=== PATIENT | female | born 1975 | race Caucasian/White ===

== ENCOUNTER → 2016-09-07 | Outpatient (CLI) | payer OTHER ==
[~2016-09-07] MED LIST: ALPR1T; ALPR1T PO; AMIT25TA9 PO; BUDE10.2 IH; BUDE6HFA IH; BUSP10TA95 PO; CEFD300C3 PO; CEFU500T5 PO; CHLO500T2 PO; CLAR-19 PO; CLN.2T; CLON1TAB PO; CPR500T PO; CRS350T; CYCL10TA45; CYCL10TA9; CYCL10TA9 PO; DIPH25TA82 PO; DIVA500T PO; DLT30T; ENLP10T; EST.625T; FLUO10CA19; FLUT16SP22 NS; GLIP5TAB13 PO; HYDR-2856 PO; HYDR-32; HYDR-3720; HYDR-3720 PO; HYDR-3820 PO; HYDR-87 PO; HYDR25TA4 PO; METO100T2 PO; METO50TA2 PO; METO50TA7; MTP50T PO; NAPR500T PO; OMEP40CA36 PO; PANT40TA3 PO; PRD20T PO; PREG100C22 PO; PREG75CA PO; QUET100T69 PO; QUET25TA PO; RANI150T15 PO; RT-ALBUINH IH; TRAM50TA2 PO; TRAZ100T92 PO; TRAZ150T42 PO; VORT10TA PO; VORT20TA PO; ZLP10T
--- NOTE | 2016-09-07 13:25 | Diagnostic Imaging Report ---
PROCEDURE: CT abdomen and pelvis without contrast. TECHNIQUE: Multiple contiguous axial images were obtained through the abdomen and pelvis without the use of intravenous contrast. INDICATION: Nausea, vomiting, diarrhea. COMPARISON: Study compared to 02/03/2016. FINDINGS: The previous left perinephric and periureteric edema and mild collecting system distention has resolved. No opaque stone, disease, or hydronephrosis. There is some postoperative distortion of the pericecal fat in the right lower quadrant, presumed previous appendectomy. The uterus is surgically absent. Unopacified urinary bladder is unremarkable. There were no findings of diverticulitis. There is no bowel, biliary, or urinary tract obstruction. Liver suggests mild steatosis, but no biliary dilatation. The gallbladder is unremarkable. The pancreas is normal. There is no adrenal mass. The spleen is negative. There is no pneumatosis or free air. There are no focal inflammatory changes. IMPRESSION: Postoperative sequelae and mild hepatic steatosis. Resolution of previous left hydronephrosis. No acute abnormality or adverse development. Dictated by: Dictated on workstation # [id number]
== END ==
LOC: RAD 10:18
PROVIDERS: ATTEND Nurse Practitioner Family
DX: K58.0 Irritable bowel syndrome with diarrhea (principal); K76.0 Fatty (change of) liver, not elsewhere classified
CPT/HCPCS: 74176

== ENCOUNTER 2016-09-30 11:23 | Emergency (ER) | payer SELFPAY ==
[~2016-09-30] VITALS: Ht 157.5 cm; Wt 77.1 kg
--- OUTSIDE RECORDS SUMMARY | 2016-09-30 11:45 | XMS REPORT ---
Author ALEXIA Lehman Organization [employer] Address Unknown Phone Unavailable Care Team Providers Care Integrated Circuit Design Engineer Name Role Phone ALEXIA SMITH CP Unavailable Allergies No Known Allergies Problems Problem Type Condition Code Onset Dates Condition Status Problem Hypertension, benign I10 Active Medications No Known Medications Results No Known Results Summary Purpose eClinicalWorks Submission
--- OUTSIDE RECORDS SUMMARY | 2016-09-30 11:45 | XMS REPORT ---
Author Author ROSSY LAUGHLIN Organization [employer] Address Unknown Phone Unavailable Care Team Providers Care Certified Meeting Professional Name Role Phone ROSSY LAUGHLIN CP Unavailable Allergies No Known Allergies Problems Problem Type Condition Code Onset Dates Condition Status Problem Hypertension, benign I10 Active Problem Other chronic pain G89.29 Active Medications Medication Code System Code Instructions Start Date End Date Status Dosage Hydrochlorothiazide [facility] [address]-42 25 MG Orally Once a day July 10, 2015 1 tablet Taiban [facility] [address]-91 10-325 MG Orally 3 times a day Nov 17, 2015 1 tablet as needed GlipiZIDE [facility] [address]-74 5 mg Orally Once a day July 10, 2015 1 tablet Brintellix [facility] 0 20 mg Orally Once a day 1 tablet Seroquel [facility] [address]-34 100 MG Orally daily and 2 tabs at HS May 27, 2014 1 tablet Parafon Forte DSC [facility] [address]-39 500 MG Orally 2 times a day Dec 04, 2014 1 tablet Metoprolol Tartrate [facility] [address]-83 50 mg Orally Twice a day August 08, 2015 1 tablet Protonix [facility] [address]-45 40 mg Orally Once a day, voucher 1st fill only August 08, 2015 1 tablet Results No Known Results Summary Purpose eClinicalWorks Submission
--- OUTSIDE RECORDS SUMMARY | 2016-09-30 11:45 | XMS REPORT ---
Author ALEXIA Lehman [facility] eClinicalWorks Address Unknown Phone Unavailable Care Team Providers Care Supervisor Keymodule Assembly Name Role Phone ALEXIA SMITH CP Unavailable Allergies, Adverse Reactions, Alerts Substance Reaction Event Type Sulfamethoxazole Info Not Available Drug Allergy Depakote chest pain, nausea, slobbering Drug Allergy Problems Problem Type Condition Code Onset Dates Condition Status Assessment Low back pain M54.5 Active Assessment Sciatica, unspecified side M54.30 Active Problem Hypertension, benign I10 Active Assessment Pain in left knee M25.562 Active Assessment Hypertension, benign I10 Active Assessment Mood disorder F39 Active Assessment Pain in right knee M25.561 Active Medications Medication Code System Code Instructions Start Date End Date Status Dosage Amitriptyline HCl [facility] [address]-31 25 MG Orally Once a day Dec 04, 2014 1 tablet Metoprolol Tartrate [facility] [address]-28 100 MG every 12 hrs Apr 22, 2014 1 tablet Brintellix [facility] [address]-90 10 MG Orally Once a day September 18, 2014 2 tablets Seroquel [facility] [address]-34 100 MG Orally Twice a day May 27, 2014 1 tablet Brintellix [facility] [address]-53 5 MG Orally Once a day Feb 03, 2015 4 tablets Lyrica [facility] [address]-99 75 MG Orally Twice a day September 18, 2014 1 capsule Trazodone HCl [facility] [address]-55 150 MG Orally Once a day Feb 03, 2015 2 tablets BusPIRone HCl [facility] [address]-31 10 MG Orally Twice a day Feb 03, 2015 1 tablet Tramadol HCl [facility] [address]-16 50 MG Orally every 4 hrs Dec 04, 2014 1 tablet as needed Parafon Forte DSC [facility] [address]-49 500 MG Orally 2 times a day voucher 1st fill only Dec 04, 2014 1 tablet Procedures Procedure Coding System Code Date Office Visit, Est Pt., Level 3 CPT-4 95970 Feb 03, 2015 Vital Signs Date/Time: Feb 03, 2015 Temperature 96.9 F Weight 189.5 lbs Height 63 in BMI 33.56 Index Blood Pressure Diastolic 72 mmHg Blood Pressure Systolic 112 mmHg Cardiac Monitoring Heart Rate 68 bpm Results No Known Results Summary Purpose eClinicalWorks Submission
--- OUTSIDE RECORDS SUMMARY | 2016-09-30 11:45 | XMS REPORT ---
Author ALEXIA Lehman [facility] e[employer] Address Unknown Phone Unavailable Care Team Providers Care Customer Management Specialist Name Role Phone ALEXIA SMITH CP Unavailable Allergies, Adverse Reactions, Alerts Substance Reaction Event Type Sulfamethoxazole Info Not Available Drug Allergy Depakote chest pain, nausea, slobbering Drug Allergy Problems Problem Type Condition Code Onset Dates Condition Status Assessment Low back pain M54.5 Active Problem Essential hypertension, benign 401.1 Active Problem Pain in joint, pelvic region and thigh 719.45 Active Problem Unspecified vitamin D deficiency 268.9 Active Problem Obesity, unspecified 278.00 Active Problem Other abnormal glucose 790.29 Active Problem Routine gynecological examination V72.31 Active Problem Anxiety state, unspecified 300.00 Active Problem Chest pain, unspecified 786.50 Active Problem Unspecified backache 724.5 Active Problem Lumbago 724.2 Active Problem Pain in joint, lower leg 719.46 Active Problem Family history of malignant neoplasm of breast V16.3 Active Problem Diffuse cystic mastopathy 610.1 Active Problem Rash and other nonspecific skin eruption 782.1 Active Problem Nondependent tobacco use disorder 305.1 Active Problem Unspecified episodic mood disorder 296.90 Active Problem Acute upper respiratory infections of unspecified site 465.9 Active Problem Unspecified constipation 564.00 Active Problem Unspecified hemorrhoids without mention of complication 455.6 Active Problem Mastodynia 611.71 Active Problem Allergic rhinitis, cause unspecified 477.9 Active Problem Unspecified breast screening V76.10 Active Problem Screening examination for venereal disease V74.5 Active Problem Edema 782.3 Active Problem Dysfunction of Eustachian tube 381.81 Active Problem Unspecified gastritis and gastroduodenitis without mention of hemorrhage 535.50 Active Problem Cellulitis and abscess of unspecified site 682.9 Active Medications Medication Code System Code Instructions Start Date End Date Status Dosage Lyrica [facility] [address]-92 75 MG Orally Twice a day September 18, 2014 1 capsule Seroquel [facility] [address]-93 100 MG Orally Twice a day May 27, 2014 1 tablet Metoprolol Tartrate [facility] [address]-04 100 MG Apr 22, 2014 take 1 tablet (100 mg) by oral route 2 times per day with meals Amitriptyline HCl [facility] [address]-98 25 MG Orally Once a day Dec 04, 2014 1 tablet Tramadol HCl [facility] [address]-02 50 MG Orally every 4 hrs Dec 04, 2014 1 tablet as needed Brintellix [facility] [address]-70 10 MG Orally Once a day September 18, 2014 2 tablets trazodone NDC 0 300 mg May 27, 2014 1 Daily by Oral route 1 time per day Take at HS for sleep tramadol NDC 0 50 mg 4 times a day June 20, 2014 1 tablet buspirone NDC 0 10 mg 3 times a day June 03, 2014 2 tablets Parafon Forte DSC [facility] [address]-25 500 MG Orally 2 times a day voucher 1st fill only Dec 04, 2014 1 tablet Procedures Procedure Coding System Code Date Office Visit, Est Pt., Level 3 CPT-4 15490 Jan 03, 2015 Vital Signs Date/Time: Jan 03, 2015 Temperature 97.8 F Weight 191.7 lbs Height 63 in BMI 33.95 Index Blood Pressure Diastolic 60 mmHg Blood Pressure Systolic 120 mmHg Cardiac Monitoring Heart Rate 68 bpm Results No Known Results Summary Purpose eClinicalWorks Submission
--- OUTSIDE RECORDS SUMMARY | 2016-09-30 11:46 | XMS REPORT ---
Author ALEXIA Lehman Organization [employer] Address Unknown Phone Unavailable Care Team Providers Care Veneer Production Machine Operator Name Role Phone ALEXIA SMITH CP Unavailable Allergies No Known Allergies Problems Problem Type Condition Code Onset Dates Condition Status Problem Hypertension, benign I10 Active Medications No Known Medications Results No Known Results Summary Purpose eClinicalWorks Submission
--- OUTSIDE RECORDS SUMMARY | 2016-09-30 11:46 | XMS REPORT ---
Author Author ALEXIA SMITH [facility] Address [address] [place] [address] Care Team Providers Care Flute Polisher Name Role Phone ALEXIA SMITH Unavailable PROBLEMS Type Condition ICD9-CM Code [id number] Code Onset Dates Condition Status SNOMED Code Problem Lumbago with sciatica, left side M54.42 Active 793961069 Problem Other chronic pain G89.29 Active 93325588 Problem Hypertension, benign I10 Active 58145141 ALLERGIES Unknown Allergies SOCIAL HISTORY No smoking Hx information available PLAN OF CARE VITAL SIGNS Height 63 in 2016-03-03 Weight 192.2 lbs 2016-03-03 Heart Rate 80 bpm 2016-03-03 Respiratory Rate 20 2016-03-03 BMI 34.04 kg/m2 2016-03-03 Blood pressure systolic 128 mmHg 2016-03-03 Blood pressure diastolic 78 mmHg 2016-03-03 MEDICATIONS Unknown Medications RESULTS No Results PROCEDURES No Known procedures IMMUNIZATIONS No Known Immunizations
--- OUTSIDE RECORDS SUMMARY | 2016-09-30 11:46 | XMS REPORT ---
Author Author ALEXIA SMITH [facility] Address [address] [place] [address] Care Team Providers Care Weights And Measures Inspector Name Role Phone ALEXIA SMITH Unavailable PROBLEMS Type Condition ICD9-CM Code [id number] Code Onset Dates Condition Status SNOMED Code Problem Hypertension, benign I10 Active 10762139 Assessment Anxiety F41.9 Dec, Active 96521311 ALLERGIES Substance Reaction Event Type Date Status Fetzima made pt very angry/depressed Drug Allergy Dec, Active Sulfamethoxazole Unknown Drug Allergy Dec, Active Depakote chest pain, nausea, slobbering Drug Allergy Dec, Active SOCIAL HISTORY No smoking Hx information available PLAN OF CARE VITAL SIGNS Height 63 in 2015-12-22 Weight 196.2 lbs 2015-12-22 Heart Rate 76 bpm 2015-12-22 Respiratory Rate 18 2015-12-22 BMI 34.75 kg/m2 2015-12-22 Blood pressure systolic 122 mmHg 2015-12-22 Blood pressure diastolic 72 mmHg 2015-12-22 MEDICATIONS Medication Instructions Dosage Frequency Start Date End Date Duration Status Brintellix 20 mg Orally Once a day 1 tablet 24h 30 days Active Zantac 150 MG Orally Once a day 1 tablet at bedtime 24h Oct, Active Hydrochlorothiazide 25 MG Orally Once a day 1 tablet 24h Jul, 90 days Active Whitefish 10-325 MG Orally 3 times a day 1 tablet as needed 8h Nov, Active Parafon Forte DSC 500 MG Orally 2 times a day 1 tablet 12h Dec, Active Metoprolol Tartrate 50 mg Orally Twice a day 1 tablet 12h August, Active BusPIRone HCl 10 mg Orally Twice a day 1 tablet 12h Dec, Active Seroquel 100 MG Orally 3 times a day, voucher 1st fill only 1 tablet May, Active GlipiZIDE 5 mg Orally Once a day 1 tablet 24h Jul, 90 days Active Cetirizine HCl 10 mg Orally Once a day, voucher 1st fill only 1 tablet Oct, Active Protonix 40 mg Orally Once a day, voucher 1st fill only 1 tablet August, Active RESULTS No Results PROCEDURES Procedure Date Ordered Related Diagnosis Body Site Office Visit, Est Pt., Level 3 Dec 22, 2015 IMMUNIZATIONS No Known Immunizations
--- OUTSIDE RECORDS SUMMARY | 2016-09-30 11:46 | XMS REPORT ---
Author ALEXIA Lehman [facility] eClinicalWorks Address Unknown Phone Unavailable Care Team Providers Care Dowel Machine Operator Name Role Phone ALEXIA SMITH CP Unavailable Allergies, Adverse Reactions, Alerts Substance Reaction Event Type Fetzima made pt very angry/depressed Drug Allergy Sulfamethoxazole Info Not Available Drug Allergy Depakote chest pain, nausea, slobbering Drug Allergy Problems Problem Type Condition Code Onset Dates Condition Status Assessment Hip pain M25.559 Active Assessment Low back pain M54.5 Active Problem Hypertension, benign I10 Active Assessment Pain of left leg M79.605 Active Assessment Elevated glucose R73.09 Active Assessment Sciatica, unspecified side M54.30 Active Assessment Pain in right leg M79.604 Active Medications Medication Code System Code Instructions Start Date End Date Status Dosage Kiskimere Carbonate [facility] [address]-69 300 MG Orally 2 times a day 1 capsule Prilosec [facility] [address]-01 40 MG Orally Once a day 1 capsule Seroquel [facility] [address]-97 100 MG Orally Twice a day May 27, 2014 1 tablet Parafon Forte DSC [facility] [address]-40 500 MG Orally 2 times a day Dec 04, 2014 1 tablet Metoprolol Tartrate [facility] [address]-16 100 MG every 12 hrs Apr 22, 2014 1 tablet Tramadol HCl [facility] [address]-17 50 MG Orally every 4 hrs Dec 04, 2014 1 tablet as needed Procedures Procedure Coding System Code Date GLYCATED HEMOGLOBIN TEST CPT-4 82645 May 09, 2015 Office Visit, Est Pt., Level 3 CPT-4 91222 May 09, 2015 X-RAY EXAM OF LOWER SPINE CPT-4 29637 May 09, 2015 Vital Signs Date/Time: May 09, 2015 Cardiac Monitoring Heart Rate 72 bpm Temperature 98.4 F Height 63 in Blood Pressure Diastolic 94 mmHg Blood Pressure Systolic 132 mmHg Results Name Result Date Reference Range Unit Abnormality Flag A1C (IN HOUSE) ----A1C IN HOUSE 5.7 [id number] 4.3 - 5.6 % ----Lot [id number] ----Exp date [id number] Summary Purpose eClinicalWorks Submission
--- OUTSIDE RECORDS SUMMARY | 2016-09-30 11:46 | XMS REPORT ---
Author Author ALEXIA SMITH Organization [employer] Address Unknown Phone Unavailable Care Team Providers Care Pot Sander Name Role Phone ALEXIA SMITH CP Unavailable Allergies No Known Allergies Problems Problem Type Condition Code Onset Dates Condition Status Assessment Mood disorder F39 Active Problem Hypertension, benign I10 Active Medications Medication Code System Code Instructions Start Date End Date Status Dosage Brintellix [facility] [address]-91 20 MG Orally Once a day September 18, 2014 1 tablet Results No Known Results Summary Purpose eClinicalWorks Submission
--- OUTSIDE RECORDS SUMMARY | 2016-09-30 11:46 | XMS REPORT ---
Author Author ALEXIA SMITH Organization [employer] Address Unknown Phone Unavailable Care Team Providers Care Dryerman/Woman Name Role Phone ALEXIA SMITH CP Unavailable Allergies No Known Allergies Problems Problem Type Condition Code Onset Dates Condition Status Problem Hypertension, benign I10 Active Problem Other chronic pain G89.29 Active Medications No Known Medications Results No Known Results Summary Purpose eClinicalWorks Submission
--- OUTSIDE RECORDS SUMMARY | 2016-09-30 11:47 | XMS REPORT ---
Author Author ALEXIA SMITH [facility] Address [address] [place] [address] Care Team Providers Care Electrician Second Name Role Phone ALEXIA SMITH Unavailable PROBLEMS Type Condition ICD9-CM Code [id number] Code Onset Dates Condition Status SNOMED Code Problem Lumbago with sciatica, left side M54.42 Active 077696448 Problem Other chronic pain G89.29 Active 96928357 Assessment Pain in left knee M25.562 Mar, Active 00423975 Problem Hypertension, benign I10 Active 57874338 Assessment Lumbago with sciatica, left side M54.42 Mar, Active 379094842 ALLERGIES Substance Reaction Event Type Date Status Fetzima made pt very angry/depressed Drug Allergy Mar, Active Sulfamethoxazole Unknown Drug Allergy Mar, Active Depakote chest pain, nausea, slobbering Drug Allergy Mar, Active SOCIAL HISTORY No smoking Hx information available PLAN OF CARE VITAL SIGNS Height 63 in 2016-03-15 Weight 198.1 lbs 2016-03-15 Heart Rate 68 bpm 2016-03-15 Respiratory Rate 18 2016-03-15 BMI 35.09 kg/m2 2016-03-15 Blood pressure systolic 128 mmHg 2016-03-15 Blood pressure diastolic 78 mmHg 2016-03-15 MEDICATIONS Medication Instructions Dosage Frequency Start Date End Date Duration Status Zantac 150 MG Orally Once a day 1 tablet at bedtime 24h Oct, Active Brintellix 20 mg Orally Once a day 1 tablet 24h 30 days Active Protonix 40 mg Orally Once a day, voucher 1st fill only 1 tablet August, Active Cyclobenzaprine HCl 10 mg Orally 2 times a day 1 tablet 12h Mar, Jul, 30 day(s) Active Metoprolol Tartrate 50 mg Orally Twice a day 1 tablet 12h August, Active Cetirizine HCl 10 mg Orally Once a day, voucher 1st fill only 1 tablet Oct, Active BusPIRone HCl 10 mg Orally Twice a day 1 tablet 12h Dec, Active Seroquel 100 MG Orally daily and 2 tabs at HS 1 tablet May, Active [place] 10-325 MG Orally 4 times a day 1 tablet as needed 6h Mar, Active RESULTS No Results PROCEDURES Procedure Date Ordered Related Diagnosis Body Site Office Visit, Est Pt., Level 3 Mar 15, 2016 IMMUNIZATIONS No Known Immunizations
--- OUTSIDE RECORDS SUMMARY | 2016-09-30 11:47 | XMS REPORT ---
Author ALEXIA Lehman [facility] eClinicalWorks Address Unknown Phone Unavailable Care Team Providers Care Pacs Administrator Name Role Phone ALEXIA SMITH CP Unavailable Allergies, Adverse Reactions, Alerts Substance Reaction Event Type Fetzima made pt very angry/depressed Drug Allergy Sulfamethoxazole Info Not Available Drug Allergy Depakote chest pain, nausea, slobbering Drug Allergy Problems Problem Type Condition Code Onset Dates Condition Status Assessment Chronic gastritis without bleeding, unspecified gastritis type K29.50 Active Assessment Allergic rhinitis, unspecified allergic rhinitis type J30.9 Active Problem Hypertension, benign I10 Active Assessment Acute left-sided low back pain without sciatica M54.5 Active Medications Medication Code System Code Instructions Start Date End Date Status Dosage Cetirizine HCl [facility] [address]-65 10 mg Orally Once a day. PLEASE VOUCHER October 17, 2015 Mar 15, 2016 1 tablet Zantac [facility] [address]-73 150 MG Orally Once a day October 17, 2015 1 tablet at bedtime Hydrochlorothiazide [facility] [address]-97 25 MG Orally Once a day July 10, 2015 1 tablet GlipiZIDE [facility] [address]-54 5 mg Orally Once a day July 10, 2015 1 tablet Seroquel [facility] [address]-52 100 MG Orally Twice a day May 27, 2014 1 tablet Brintellix [facility] [address]-34 20 MG Orally Once a day 1 tablet Protonix [facility] [address]-96 40 mg Orally Once a day August 08, 2015 1 tablet Metoprolol Tartrate [facility] [address]-64 50 mg Orally Twice a day August 08, 2015 1 tablet Triamcinolone Acetonide [facility] [address]-64 0.1 % Externally Twice a day, voucher 1st fill August 08, 2015 1 application to affected area Tramadol HCl [facility] [address]-37 50 mg Orally every 4 hrs Dec 04, 2014 1 tablet as needed Parafon Forte DSC [facility] [address]-74 500 MG Orally 2 times a day Dec 04, 2014 1 tablet Procedures Procedure Coding System Code Date ASSAY OF AMYLASE CPT-4 62228 October 17, 2015 ASSAY THYROID STIM HORMONE CPT-4 81893 October 17, 2015 Office Visit, Est Pt., Level 3 CPT-4 62803 October 17, 2015 IMMUNOASSAY,INFECTIOUS AGENT CPT-4 83963 October 17, 2015 VENIPUNCT, ROUTINE* CPT-4 64732 October 17, 2015 COMPLETE CBC W/AUTO DIFF WBC CPT-4 95547 October 17, 2015 ASSAY OF LIPASE CPT-4 96332 October 17, 2015 COMPREHEN METABOLIC PANEL CPT-4 00615 October 17, 2015 LIPID PANEL CPT-4 56070 October 17, 2015 Vital Signs Date/Time: October 17, 2015 Cardiac Monitoring Heart Rate 80 bpm Weight 191.5 lbs Height 63 in Blood Pressure Diastolic 90 mmHg Blood Pressure Systolic 129 mmHg Results No Known Results Summary Purpose eClinicalWorks Submission
--- OUTSIDE RECORDS SUMMARY | 2016-09-30 11:47 | XMS REPORT ---
Author ALEXIA Lehman [facility] eClinicalWorks Address Unknown Phone Unavailable Care Team Providers Care Staff Trainer Name Role Phone ALEXIA SMITH CP Unavailable Allergies, Adverse Reactions, Alerts Substance Reaction Event Type Fetzima made pt very angry/depressed Drug Allergy Sulfamethoxazole Info Not Available Drug Allergy Depakote chest pain, nausea, slobbering Drug Allergy Problems Problem Type Condition Code Onset Dates Condition Status Assessment Lumbar neuritis M54.16 Active Assessment Other chronic pain G89.29 Active Problem Hypertension, benign I10 Active Assessment Pain in right knee M25.561 Active Medications Medication Code System Code Instructions Start Date End Date Status Dosage GlipiZIDE [facility] [address]-03 5 mg Orally Once a day July 10, 2015 1 tablet Metoprolol Tartrate [facility] [address]-69 50 mg Orally Twice a day August 08, 2015 1 tablet Brintellix NDC 0 20 mg Orally Once a day 1 tablet [place] [facility] [address]-29 10-325 MG Orally 3 times a day Nov 17, 2015 1 tablet as needed Parafon Forte DSC [facility] [address]-48 500 MG Orally 2 times a day Dec 04, 2014 1 tablet Hydrochlorothiazide [facility] [address]-02 25 MG Orally Once a day July 10, 2015 1 tablet Seroquel [facility] [address]-25 100 MG Orally take 2 tabs at bedtime May 27, 2014 1 tablet in AM Protonix [facility] [address]-45 40 mg Orally Once a day August 08, 2015 1 tablet Cetirizine HCl [facility] [address]-57 10 mg Orally Once a day. PLEASE VOUCHER October 17, 2015 1 tablet Zantac [facility] [address]-92 150 MG Orally Once a day October 17, 2015 1 tablet at bedtime Procedures Procedure Coding System Code Date Office Visit, Est Pt., Level 3 CPT-4 60742 Nov 17, 2015 Vital Signs Date/Time: Nov 17, 2015 Cardiac Monitoring Heart Rate 72 bpm Weight 193.7 lbs Height 63 in BMI 34.31 Index Blood Pressure Diastolic 76 mmHg Blood Pressure Systolic 118 mmHg Results No Known Results Summary Purpose eClinicalWorks Submission
--- OUTSIDE RECORDS SUMMARY | 2016-09-30 11:47 | XMS REPORT ---
Author Author ALEXIA SMITH Organization e[employer] Address Unknown Phone Unavailable Care Team Providers Care Paunch Trimmer Name Role Phone ALEXIA SMITH CP Unavailable Allergies No Known Allergies Problems Problem Type Condition Code Onset Dates Condition Status Assessment Lumbago M54.5 Active Problem Hypertension, benign I10 Active Medications Medication Code System Code Instructions Start Date End Date Status Dosage Seroquel [facility] [address]-33 100 MG Orally take 2 tabs at bedtime May 27, 2014 1 tablet in AM Results No Known Results Summary Purpose eClinicalWorks Submission
--- OUTSIDE RECORDS SUMMARY | 2016-09-30 11:47 | XMS REPORT ---
Author Author ALEXIA SMITH Organization [employer] Address Unknown Phone Unavailable Care Team Providers Care Deputy Chief Magistrate Name Role Phone ALEXIA SMITH CP Unavailable Allergies No Known Allergies Problems Problem Type Condition Code Onset Dates Condition Status Problem Hypertension, benign I10 Active Problem Other chronic pain G89.29 Active Medications Medication Code System Code Instructions Start Date End Date Status Dosage [facility] [address]-50 10-325 MG Orally 3 times a day Nov 17, 2015 1 tablet as needed Results No Known Results Summary Purpose eClinicalWorks Submission
--- OUTSIDE RECORDS SUMMARY | 2016-09-30 11:47 | XMS REPORT ---
Author ALEXIA Lehman Organization [employer] Address Unknown Phone Unavailable Care Team Providers Care Home Care Chaplain Name Role Phone ALEXIA SMITH CP Unavailable Allergies No Known Allergies Problems Problem Type Condition Code Onset Dates Condition Status Problem Hypertension, benign I10 Active Medications No Known Medications Results No Known Results Summary Purpose [employer]ClinicalWorks Submission
--- OUTSIDE RECORDS SUMMARY | 2016-09-30 11:47 | XMS REPORT ---
Author Author ALEXIA SMITH [facility] Address [address] [place] [address] Care Team Providers Care Top Former Name Role Phone ALEXIA SMITH Unavailable PROBLEMS Type Condition ICD9-CM Code [id number] Code Onset Dates Condition Status SNOMED Code Problem Hypertension, benign I10 Active 64683277 ALLERGIES Unknown Allergies SOCIAL HISTORY No smoking Hx information available PLAN OF CARE VITAL SIGNS MEDICATIONS Medication Instructions Dosage Frequency Start Date End Date Duration Status [place] 10-325 MG Orally 3 times a day 1 tablet as needed 8h 15 Nov, 2015 Active RESULTS No Results PROCEDURES No Known procedures IMMUNIZATIONS No Known Immunizations
--- OUTSIDE RECORDS SUMMARY | 2016-09-30 11:47 | XMS REPORT ---
Author ALEXIA Lehman Organization [employer] Address Unknown Phone Unavailable Care Team Providers Care Editor Publications Name Role Phone ALEXIA SMITH CP Unavailable Allergies No Known Allergies Problems Problem Type Condition Code Onset Dates Condition Status Assessment Hip pain M25.559 Active Problem Hypertension, benign I10 Active Medications Medication Code System Code Instructions Start Date End Date Status Dosage Metoprolol Tartrate [facility] [place] [address]-57 100 MG every 12 hrs Apr 22, 2014 1 tablet Results No Known Results Summary Purpose eClinicalWorks Submission
--- OUTSIDE RECORDS SUMMARY | 2016-09-30 11:49 | XMS REPORT ---
Author Author ALEXIA SMITH [facility] Address [address] [place] [address] Care Team Providers Care Wad Blanking Press Adjuster Name Role Phone SARAH ALEXIA Unavailable PROBLEMS Type Condition ICD9-CM Code [id number] Code Onset Dates Condition Status SNOMED Code Problem Lumbago with sciatica, left side M54.42 Active 960002847 Problem Other chronic pain G89.29 Active 42028894 Problem Hypertension, benign I10 Active 96366385 Assessment Acute left-sided low back pain without sciatica M54.5 Feb, Active 024522473 ALLERGIES Unknown Allergies SOCIAL HISTORY No smoking Hx information available PLAN OF CARE VITAL SIGNS MEDICATIONS Unknown Medications RESULTS No Results PROCEDURES Procedure Date Ordered Related Diagnosis Body Site TORADOL (IM) 60 MG/2ML (UP TO 15 MG) Mar 03, 2016 THER/PROPH/DIAG INJ, SC/IM Mar 03, 2016 IMMUNIZATIONS Vaccine Route Administration Date Status TORADOL (IM) 60 MG/2ML (UP TO 15 MG) IM Intramuscular Mar 03, 2016 Administered
--- OUTSIDE RECORDS SUMMARY | 2016-09-30 11:49 | XMS REPORT ---
Author ALEXIA Lehman [facility] e[employer] Address Unknown Phone Unavailable Care Team Providers Care Pyrotechnic Mixer Name Role Phone ALEXIA SMITH CP Unavailable Allergies, Adverse Reactions, Alerts Substance Reaction Event Type Sulfamethoxazole Info Not Available Drug Allergy Depakote chest pain, nausea, slobbering Drug Allergy Problems Problem Type Condition Code Onset Dates Condition Status Assessment Low back pain M54.5 Active Assessment Sciatica, unspecified side M54.30 Active Problem Hypertension, benign I10 Active Medications Medication Code System Code Instructions Start Date End Date Status Dosage BusPIRone HCl [facility] [address]-37 10 MG Orally Twice a day Feb 03, 2015 1 tablet Parafon Forte DSC [facility] [address]-83 500 MG Orally 2 times a day Dec 04, 2014 1 tablet Prilosec [facility] [address]-43 40 MG Orally Once a day 1 capsule Metoprolol Tartrate [facility] [address]-74 100 MG every 12 hrs Apr 22, 2014 1 tablet Tramadol HCl [facility] [address]-82 50 MG Orally every 4 hrs Dec 04, 2014 1 tablet as needed Fetzima [facility] [address]-30 20 MG Orally Once a day 1 capsule Seroquel [facility] [address]-88 100 MG Orally Twice a day May 27, 2014 1 tablet Trazodone HCl [facility] [address]-94 150 MG Orally Once a day Feb 03, 2015 2 tablets Procedures Procedure Coding System Code Date TORADOL (IM) 60 MG/2ML (UP TO 15 MG) CPT-4 J1885 Apr 09, 2015 THER/PROPH/DIAG INJ, SC/IM CPT-4 30609 Apr 09, 2015 Office Visit, Est Pt., Level 3 CPT-4 58570 Apr 09, 2015 Vital Signs Date/Time: Apr 09, 2015 Temperature 98.0 F Weight 195.4 lbs Height 63 in BMI 34.61 Index Blood Pressure Diastolic 92 mmHg Blood Pressure Systolic 134 mmHg Cardiac Monitoring Heart Rate 74 bpm Results No Known Results Summary Purpose eClinicalWorks Submission
--- OUTSIDE RECORDS SUMMARY | 2016-09-30 11:49 | XMS REPORT ---
Author ALEXIA Lehman Organization [employer] Address Unknown Phone Unavailable Care Team Providers Care Surg Nurse Name Role Phone ALEXIA SMITH CP Unavailable Allergies, Adverse Reactions, Alerts Substance Reaction Event Type Fetzima made pt very angry/depressed Drug Allergy Sulfamethoxazole Info Not Available Drug Allergy Depakote chest pain, nausea, slobbering Drug Allergy Problems Problem Type Condition Code Onset Dates Condition Status Problem Other chronic pain G89.29 Active Problem Hypertension, benign I10 Active Problem Lumbago with sciatica, left side M54.42 Active Assessment Other chronic pain G89.29 Active Assessment Elevated glucose R73.09 Active Assessment History of kidney infection Z87.440 Active Assessment Lumbago with sciatica, left side M54.42 Active Medications Medication Code System Code Instructions Start Date End Date Status Dosage Pyridium [facility] [address]-99 100 MG Orally Three times a day, voucher FebFeb 15, 2016 1 tablet after meals Seroquel [facility] [address]-76 100 MG Orally daily and 2 tabs at HS May 27, 2014 1 tablet Protonix [facility] [address]-13 40 mg Orally Once a day, voucher 1st fill only August 08, 2015 1 tablet Brintellix NDC 0 20 mg Orally Once a day 1 tablet [place] [facility] [address]-20 10-325 MG Orally 3 times a day Nov 17, 2015 1 tablet as needed Parafon Forte DSC [facility] [address]-65 500 MG Orally 2 times a day Dec 04, 2014 1 tablet Metoprolol Tartrate [facility] [address]-44 50 mg Orally Twice a day August 08, 2015 1 tablet Procedures Procedure Coding System Code Date Office Visit, Est Pt., Level 3 CPT-4 66047 Feb 12, 2016 GLYCATED HEMOGLOBIN TEST CPT-4 60172 Feb 12, 2016 Vital Signs Date/Time: Feb 12, 2016 Cardiac Monitoring Heart Rate 72 bpm Weight 196.0 lbs Height 63 in BMI 34.72 Index Blood Pressure Diastolic 74 mmHg Blood Pressure Systolic 112 mmHg Results Name Result Date Reference Range Unit Abnormality Flag A1C (IN HOUSE) ----A1C IN HOUSE 6.5 20160212 4.3 - 5.6 % ----Previous A1c 5.7 20160212 ----Lot [id number] ----Exp date 20160212 UA LONG DIP (IN HOUSE) ----MARISOL +1 20160212 ----GLU Negative 20160212 ----SG >=1.030 20160212 ----KET trace 20160212 ----pH 5.5 20160212 ----Protein Negative 20160212 ----BLO Negative 20160212 ----AMBER Negative 20160212 ----Color yellow 20160212 ----Odor no 20160212 ----Exp date 20160212 ----URO 0.2 20160212 ----NIT Negative 20160212 ----Clarity clear 20160212 ----Lot # [id number] Summary Purpose eClinicalWorks Submission
--- OUTSIDE RECORDS SUMMARY | 2016-09-30 11:49 | XMS REPORT ---
Author Author ALEXIA SMITH Organization [employer] Address Unknown Phone Unavailable Care Team Providers Care Core Rescuer Name Role Phone ALEXIA SMITH CP Unavailable Allergies No Known Allergies Problems Problem Type Condition Code Onset Dates Condition Status Problem Other chronic pain G89.29 Active Problem Hypertension, benign I10 Active Problem Lumbago with sciatica, left side M54.42 Active Assessment History of kidney infection Z87.440 Active Assessment Acute cystitis without hematuria N30.00 Active Medications No Known Medications Procedures Procedure Coding System Code Date URINALYSIS, AUTO, W/O SCOPE CPT-4 62590 Mar 02, 2016 Results Name Result Date Reference Range Unit Abnormality Flag UA LONG DIP (IN HOUSE) ----AMBER Negative 20160302 ----NIT Negative 20160302 ----SG >=1.030 20160302 ----KET negative 20160302 ----MARISOL negatvie 20160302 ----GLU negative 20160302 ----Odor none 20160302 ----pH 5.5 20160302 ----BLO Trace 20160302 ----URO 0.2 20160302 ----Protein Negative 20160302 ----Lot # [id number] 20160302 ----Exp date 20160302 ----Clarity clear 20160302 ----Color yellow 20160302 Summary Purpose eClinicalWorks Submission
--- OUTSIDE RECORDS SUMMARY | 2016-09-30 11:49 | XMS REPORT ---
Author ALEXIA Lehman Organization [employer] Address Unknown Phone Unavailable Care Team Providers Care Dial Screw Assembler Name Role Phone ALEXIA SMITH CP Unavailable Allergies No Known Allergies Problems Problem Type Condition ICD-9 Code Onset Dates Condition Status Problem Essential hypertension, benign 401.1 Active Problem [...] Start Date End Date Status Dosage Lyrica [facility] [address]-85 75 MG Orally Twice a day September 18, 2014 1 capsule Results No Known Results Summary Purpose eClinicalWorks Submission
--- OUTSIDE RECORDS SUMMARY | 2016-09-30 11:49 | XMS REPORT | Continuity of Care Document ---
Author Author [facility] Address Unknown Phone Unavailable Allergies Active Description Code Type Severity Reaction Onset Reported/Identified Relationship to Patient Clinical Status Yes No Known Drug Allergies [id number] Drug Allergy Unknown N/ A 05/09/2008 Yes potassium [id number] Drug Allergy Unknown SWELLING 06/10/2008 Yes Sulfa (Sulfonamide Antibiotics) [id number] Drug Allergy Unknown RASH 06/10/2008 Yes ENVIROMENTAL ALLERGIES ENVIROMENTAL ALLERGIES Mild N/A 08/20/2008 Yes sulfADIAZINE Drug Allergy 01/29/2009 Yes sulfADIAZINE Drug Allergy N/A N/A 01/29/2009 Medications Problems Date Dx Coded Attending Type Code Diagnosis Diagnosed By 01/29/2009 296.32 MAJOR DEPRESSION RECURRENT MODERATE 01/29/2009 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 01/29/2009 338.4 CHRONIC PAIN SYNDROME 01/29/2009 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 01/29/2009 ALEXIA SMITH APRN 296.32 MAJOR DEPRESSION RECURRENT MODERATE 01/29/2009 ALEXIA SMITH APRN 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 01/29/2009 ALEXIA SMITH APRN 338.4 CHRONIC PAIN SYNDROME 01/29/2009 ALEXIA SMITH APRN 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 01/29/2009 296.32 MAJOR DEPRESSION RECURRENT MODERATE 01/29/2009 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 01/29/2009 338.4 Chronic Pain Syndrome 01/29/2009 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 01/29/2009 ALEXIA SMITH APRN 296.32 MAJOR DEPRESSION RECURRENT MODERATE 01/29/2009 ALEXIA SMITH APRN 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 01/29/2009 ALEXIA SMITH APRN 338.4 Chronic Pain Syndrome 01/29/2009 ALEXIA SMITH APRN 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 01/29/2009 296.32 MAJOR DEPRESSION RECURRENT MODERATE 01/29/2009 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 01/29/2009 338.4 Chronic Pain Syndrome 01/29/2009 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 01/29/2009 296.32 MAJOR DEPRESSION RECURRENT MODERATE 01/29/2009 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 01/29/2009 338.4 Chronic Pain Syndrome 01/29/2009 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 01/29/2009 296.32 MAJOR DEPRESSION RECURRENT MODERATE 01/29/2009 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 01/29/2009 338.4 Chronic Pain Syndrome 01/29/2009 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 01/29/2009 ALEXIA SMITH APRN T 296.32 MAJOR DEPRESSION RECURRENT MODERATE 01/29/2009 ALEXIA SMITH APRN T 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 01/29/2009 ALEXIA SMITH APRN T 338.4 Chronic Pain Syndrome 01/29/2009 ALEXIA SMITH APRN T 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 01/29/2009 ALEXIA SMITH APRN T 296.32 MAJOR DEPRESSION RECURRENT MODERATE 01/29/2009 ALEXIA SMITH APRN T 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 01/29/2009 ALEXIA SMITH APRN T 338.4 Chronic Pain Syndrome 01/29/2009 ALEXIA SMITH APRN T 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 01/29/2009 ALEXIA SMITH APRN T 296.32 MAJOR DEPRESSION RECURRENT MODERATE 01/29/2009 ALEXIA SMITH APRN T 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 01/29/2009 ALEXIA SMITH APRN T 338.4 Chronic Pain Syndrome 01/29/2009 ALEXIA SMITH APRN T 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 01/29/2009 ALEXIA SMITH APRN T 296.32 MAJOR DEPRESSION RECURRENT MODERATE 01/29/2009 ALEXIA SMITH APRN T 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 01/29/2009 ALEXIA SMITH APRN T 338.4 Chronic Pain Syndrome 01/29/2009 ALEXIA SMITH APRN T 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 01/29/2009 ALEXIA SMITH APRN T 296.32 MAJOR DEPRESSION RECURRENT MODERATE 01/29/2009 ALEXIA SMITH APRN T 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 01/29/2009 ALEXIA SMITH APRN T 338.4 Chronic Pain Syndrome 01/29/2009 ALEXIA SMITH APRN T 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 01/29/2009 ALEXIA SMITH APRN T 296.32 MAJOR DEPRESSION RECURRENT MODERATE 01/29/2009 ALEXIA SMITH APRN 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 01/29/2009 ALEXIA SMITH APRN 338.4 Chronic Pain Syndrome 01/29/2009 ALEXIA SMITH APRN 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 01/29/2009 ALEXIA SMITH APRN 296.32 MAJOR DEPRESSION RECURRENT MODERATE 01/29/2009 ALEXIA SMITH APRN 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 01/29/2009 ALEIXA SMITH APRN 338.4 Chronic Pain Syndrome 01/29/2009 ALEXIA SMITH APRN 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 03/21/2009 296.30 MO DEPRESSIVE RECURRENT UNSPECIFIED 03/21/2009 309.81 AN PTSD 03/21/2009 316 PF PSYCHIC FACTORS MED COND 03/21/2009 ALEXIA SMITH APRN 296.30 MO DEPRESSIVE RECURRENT UNSPECIFIED 03/21/2009 ALEXIA SMITH APRN 309.81 AN PTSD 03/21/2009 ALEXIA SMITH APRN 316 PF PSYCHIC FACTORS MED COND 03/21/2009 296.30 Mo Depressive Recurrent Unspecified 03/21/2009 309.81 An Ptsd 03/21/2009 316 Pf Psychic Factors Med Cond 03/21/2009 ALEXIA SMITH APRN 296.30 Mo Depressive Recurrent Unspecified 03/21/2009 ALEXIA SMITH APRN 309.81 An Ptsd 03/21/2009 ALEXIA SMITH APRN 316 Pf Psychic Factors Med Cond 03/21/2009 296.30 Mo Depressive Recurrent Unspecified 03/21/2009 309.81 An Ptsd 03/21/2009 316 Pf Psychic Factors Med Cond 03/21/2009 296.30 Mo Depressive Recurrent Unspecified 03/21/2009 309.81 An Ptsd 03/21/2009 316 Pf Psychic Factors Med Cond 03/21/2009 296.30 Mo Depressive Recurrent Unspecified 03/21/2009 309.81 An Ptsd 03/21/2009 316 Pf Psychic Factors Med Cond 03/21/2009 ALEXIA SMITH APRN 296.30 Mo Depressive Recurrent Unspecified 03/21/2009 ALEXIA SMITH APRN 309.81 An Ptsd 03/21/2009 ALEXIA SMITH APRN 316 Pf Psychic Factors Med Cond 03/21/2009 ALEXIA SMITH APRN 296.30 Mo Depressive Recurrent Unspecified 03/21/2009 ALEXIA SMITH APRN 309.81 An Ptsd 03/21/2009 ALEXIA SMITH APRN 316 Pf Psychic Factors Med Cond 03/21/2009 ALEXIA SMITH APRN 296.30 Mo Depressive Recurrent Unspecified 03/21/2009 ALEXIA SMITH APRN 309.81 An Ptsd 03/21/2009 ALEXIA SMITH APRN 316 Pf Psychic Factors Med Cond 03/21/2009 ALEXIA SMITH APRN 296.30 Mo Depressive Recurrent Unspecified 03/21/2009 ALEXIA SMITH APRN 309.81 An Ptsd 03/21/2009 ALEXIA SMITH APRN 316 Pf Psychic Factors Med Cond 03/21/2009 ALEXIA SMITH APRN 296.30 Mo Depressive Recurrent Unspecified 03/21/2009 ALEXIA SMITH APRN 309.81 An Ptsd 03/21/2009 ALEXIA SMITH APRN 316 Pf Psychic Factors Med Cond 03/21/2009 ALEXIA SMITH APRN 296.30 Mo Depressive Recurrent Unspecified 03/21/2009 ALEXIA SMITH APRN 309.81 An Ptsd 03/21/2009 ALEXIA SMITH APRN 316 Pf Psychic Factors Med Cond 03/21/2009 ALEXIA SMITH APRN 296.30 Mo Depressive Recurrent Unspecified 03/21/2009 ALEXIA SMITH APRN 309.81 An Ptsd 03/21/2009 ALEXIA SMITH APRN 316 Pf Psychic Factors Med Cond 05/15/2009 296.33 MO DEPRESSIVE RECURRENT SEVERE W/O PSYCHOTIC BEHAVIOR 05/15/2009 ALEXIA SMITH APRN 296.33 MO DEPRESSIVE RECURRENT SEVERE W/O PSYCHOTIC BEHAVIOR 05/15/2009 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 Behavior 05/15/2009 ALEXIA SMITH APRN 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 Behavior 05/15/2009 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 Behavior 05/15/2009 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 Behavior 05/15/2009 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 Behavior 05/15/2009 ALEXIA SMITH APRN 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 Behavior 05/15/2009 ALEXIA SMITH APRN 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 Behavior 05/15/2009 ALEXIA SMITH APRN 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 Behavior 05/15/2009 ALEXIA SMITH APRN 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 Behavior 05/15/2009 ALEXIA SMITH APRN 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 Behavior 05/15/2009 ALEXIA SMITH APRN 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 Behavior 05/15/2009 ALEXIA SMITH APRN 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 Behavior 05/29/2009 300.01 AN PANIC DIS W/O AGORA 05/29/2009 ALEXIA SMITH APRN 300.01 AN PANIC DIS W/O AGORA 05/29/2009 300.01 An Panic Dis W/o Agora 05/29/2009 ALEXIA SMITH APRN 300.01 An Panic Dis W/o Agora 05/29/2009 300.01 An Panic Dis W/o Agora 05/29/2009 300.01 An Panic Dis W/o Agora 05/29/2009 300.01 An Panic Dis W/o Agora 05/29/2009 ALEXIA SMITH APRN 300.01 An Panic Dis W/o Agora 05/29/2009 ALEXIA SMITH APRN 300.01 An Panic Dis W/o Agora 05/29/2009 ALEXIA SMITH APRN 300.01 An Panic Dis W/o Agora 05/29/2009 ALEXIA SMITH APRN 300.01 An Panic Dis W/o Agora 05/29/2009 ALEXIA SMITH APRN 300.01 An Panic Dis W/o Agora 05/29/2009 ALEXIA SMITH APRN 300.01 An Panic Dis W/o Agora 05/29/2009 ALEXIA SMITH APRN 300.01 An Panic Dis W/o Agora 08/13/2009 Ot 722.52 LUMB/LUMBOSAC DISC DEGEN 08/13/2009 Ot 724.2 LUMBAGO 09/21/2009 Ot 276.8 HYPOPOTASSEMIA 09/21/2009 Ot 300.00 ANXIETY STATE NOS 09/21/2009 Ot 305.20 CANNABIS ABUSE-UNSPEC 09/21/2009 Ot 780.4 DIZZINESS AND GIDDINESS 04/26/2010 Ot 401.9 HYPERTENSION NOS 04/26/2010 Ot 599.0 URIN TRACT INFECTION NOS 04/26/2010 Ot 780.2 SYNCOPE AND COLLAPSE 04/26/2010 Ot V58.69 OTH MED,LT,CURRENT USE 12/07/2011 719.46 KNEE PAIN 12/07/2011 724.2 BACK PAIN, LOWER 12/07/2011 782.1 RASH 12/07/2011 ALEXIA SMITH APRN T 719.46 KNEE PAIN 12/07/2011 ALEXIA SMITH APRN T 724.2 BACK PAIN, LOWER 12/07/2011 ALEXIA SMITH APRN T 782.1 RASH 12/07/2011 719.46 KNEE PAIN 12/07/2011 724.2 Back Pain, Lower 12/07/2011 782.1 Rash 12/07/2011 ALEXIA SMITH APRN T 719.46 KNEE PAIN 12/07/2011 ALEXIA SMITH APRN T 724.2 Back Pain, Lower 12/07/2011 ALEXIA SMITH APRN T 782.1 Rash 12/07/2011 719.46 KNEE PAIN 12/07/2011 724.2 Back Pain, Lower 12/07/2011 782.1 Rash 12/07/2011 719.46 KNEE PAIN 12/07/2011 724.2 Back Pain, Lower 12/07/2011 782.1 Rash 12/07/2011 719.46 KNEE PAIN 12/07/2011 724.2 Back Pain, Lower 12/07/2011 782.1 Rash 12/07/2011 ALEXIA SMITH APRN T 719.46 KNEE PAIN 12/07/2011 ALEXIA SMITH APRN T 724.2 Back Pain, Lower 12/07/2011 ALEXIA SMITH APRN T 782.1 Rash 12/07/2011 ALEXIA SMITH APRN 719.46 KNEE PAIN 12/07/2011 ALEXIA SMITH APRN T 724.2 Back Pain, Lower 12/07/2011 ALEXIA SMITH APRN T 782.1 Rash 12/07/2011 ALEXIA SMITH APRN T 719.46 KNEE PAIN 12/07/2011 ALEXIA SMITH APRN T 724.2 Back Pain, Lower 12/07/2011 ALEXIA SMITH APRN T 782.1 Rash 12/07/2011 ALEXIA SMITH APRN T 719.46 KNEE PAIN 12/07/2011 ALEXIA SMITH APRN 724.2 Back Pain, Lower 12/07/2011 ALEXIA SMITH APRN T 782.1 Rash 12/07/2011 ALEXIA SMITH APRN T 719.46 KNEE PAIN 12/07/2011 ALEXIA SMITH APRN 724.2 Back Pain, Lower 12/07/2011 ALEXIA SMITH APRN 782.1 Rash 12/07/2011 ALEXIA SMITH APRN T 719.46 KNEE PAIN 12/07/2011 ALEXIA SMITH APRN T 724.2 Back Pain, Lower 12/07/2011 ALEXIA SMITH APRN 782.1 Rash 12/07/2011 ALEXIA SMITH APRN 719.46 KNEE PAIN 12/07/2011 ALEXIA SMITH APRN 724.2 Back Pain, Lower 12/07/2011 ALEXIA SMITH APRN 782.1 Rash 12/14/2011 300.00 ANXIETY UNSPEC 12/14/2011 724.5 BACK PAIN, GENERAL 12/14/2011 786.50 CHEST PAIN 12/14/2011 ALEXIA SMITH APRN 300.00 ANXIETY UNSPEC 12/14/2011 ALEXIA SMITH APRN 724.5 BACK PAIN, GENERAL 12/14/2011 ALEXIA SMITH APRN 786.50 CHEST PAIN 12/14/2011 300.00 ANXIETY UNSPEC 12/14/2011 724.5 BACK PAIN, GENERAL 12/14/2011 786.50 Chest Pain 12/14/2011 ALEXIA SMITH APRN 300.00 ANXIETY UNSPEC 12/14/2011 ALEXIA SMITH APRN 724.5 BACK PAIN, GENERAL 12/14/2011 ALEXIA SMITH APRN 786.50 Chest Pain 12/14/2011 300.00 ANXIETY UNSPEC 12/14/2011 724.5 BACK PAIN, GENERAL 12/14/2011 786.50 Chest Pain 12/14/2011 300.00 ANXIETY UNSPEC 12/14/2011 724.5 BACK PAIN, GENERAL 12/14/2011 786.50 Chest Pain 12/14/2011 300.00 ANXIETY UNSPEC 12/14/2011 724.5 BACK PAIN, GENERAL 12/14/2011 786.50 Chest Pain 12/14/2011 ALEXIA SMITH APRN 300.00 ANXIETY UNSPEC 12/14/2011 ALEXIA SMITH APRN 724.5 BACK PAIN, GENERAL 12/14/2011 ALEXIA SMITH APRN 786.50 Chest Pain 12/14/2011 ALEXIA SMITH APRN 300.00 ANXIETY UNSPEC 12/14/2011 ALEXIA SMITH APRN 724.5 BACK PAIN, GENERAL 12/14/2011 ALEXIA SMITH APRN 786.50 Chest Pain 12/14/2011 ALEXIA SMITH APRN T 300.00 ANXIETY UNSPEC 12/14/2011 ALEXIA SMITH APRN T 724.5 BACK PAIN, GENERAL 12/14/2011 ALEXIA SMITH APRN T 786.50 Chest Pain 12/14/2011 ALEXIA SMITH APRN T 300.00 ANXIETY UNSPEC 12/14/2011 ALEXIA SMITH APRN T 724.5 BACK PAIN, GENERAL 12/14/2011 ALEXIA SMITH APRN T 786.50 Chest Pain 12/14/2011 ALEXIA SMITH APRN T 300.00 ANXIETY UNSPEC 12/14/2011 ALEXIA SMITH APRN T 724.5 BACK PAIN, GENERAL 12/14/2011 ALEXIA SMITH APRN T 786.50 Chest Pain 12/14/2011 ALEXIA SMITH APRN T 300.00 ANXIETY UNSPEC 12/14/2011 ALEXIA SMITH APRN T 724.5 BACK PAIN, GENERAL 12/14/2011 ALEXIA SMITH APRN T 786.50 Chest Pain 12/14/2011 ALEXIA SMITH APRN 300.00 ANXIETY UNSPEC 12/14/2011 ALEXIA SMITH APRN 724.5 BACK PAIN, GENERAL 12/14/2011 ALEXIA SMITH APRN T 786.50 Chest Pain 01/11/2012 296.90 MOOD DISORDER 01/11/2012 455.6 HEMORRHOIDS NOS 01/11/2012 465.9 UPPER RESPIRATORY INFECTION 01/11/2012 564.00 CONSTIPATION 01/11/2012 ALEXIA SMITH APRN 296.90 MOOD DISORDER 01/11/2012 ALEXIA SMITH APRN 455.6 HEMORRHOIDS NOS 01/11/2012 ALEXIA SMITH APRN 465.9 UPPER RESPIRATORY INFECTION 01/11/2012 ALEXIA SMITH APRN 564.00 CONSTIPATION 01/11/2012 296.90 MOOD DISORDER 01/11/2012 455.6 Hemorrhoids Nos 01/11/2012 465.9 Upper Respiratory Infection 01/11/2012 564.00 Constipation 01/11/2012 ALEXIA SMITH APRN 296.90 MOOD DISORDER 01/11/2012 ALEXIA SMITH APRN 455.6 Hemorrhoids Nos 01/11/2012 ALEXIA SMITH APRN 465.9 Upper Respiratory Infection 01/11/2012 ALEXIA SMITH APRN 564.00 Constipation 01/11/2012 296.90 MOOD DISORDER 01/11/2012 455.6 Hemorrhoids Nos 01/11/2012 465.9 Upper Respiratory Infection 01/11/2012 564.00 Constipation 01/11/2012 296.90 MOOD DISORDER 01/11/2012 455.6 Hemorrhoids Nos 01/11/2012 465.9 Upper Respiratory Infection 01/11/2012 564.00 Constipation 01/11/2012 296.90 MOOD DISORDER 01/11/2012 455.6 Hemorrhoids Nos 01/11/2012 465.9 Upper Respiratory Infection 01/11/2012 564.00 Constipation 01/11/2012 ALEXIA SMITH APRN T 296.90 MOOD DISORDER 01/11/2012 ALEXIA SMITH APRN T 455.6 Hemorrhoids Nos 01/11/2012 ALEXIA SMITH APRN T 465.9 Upper Respiratory Infection 01/11/2012 ALEXIA SMITH APRN T 564.00 Constipation 01/11/2012 ALEXIA SMITH APRN T 296.90 MOOD DISORDER 01/11/2012 ALEXIA SMITH APRN T 455.6 Hemorrhoids Nos 01/11/2012 ALEXIA SMITH APRN T 465.9 Upper Respiratory Infection 01/11/2012 ALEXIA SMITH APRN T 564.00 Constipation 01/11/2012 ALEXIA SMITH APRN T 296.90 MOOD DISORDER 01/11/2012 ALEXIA SMITH APRN T 455.6 Hemorrhoids Nos 01/11/2012 ALEXIA SMITH APRN T 465.9 Upper Respiratory Infection 01/11/2012 ALEXIA SMITH APRN T 564.00 Constipation 01/11/2012 ALEXIA SMITH APRN T 296.90 MOOD DISORDER 01/11/2012 ALEXIA SMITH APRN T 455.6 Hemorrhoids Nos 01/11/2012 ALEXIA SMITH APRN T 465.9 Upper Respiratory Infection 01/11/2012 ALEXIA SMITH APRN T 564.00 Constipation 01/11/2012 ALEXIA SMITH APRN T 296.90 MOOD DISORDER 01/11/2012 ALEXIA SMITH APRN T 455.6 Hemorrhoids Nos 01/11/2012 ALEXIA SMITH APRN T 465.9 Upper Respiratory Infection 01/11/2012 ALEXIA SMITH APRN T 564.00 Constipation 01/11/2012 ALEXIA SMITH APRN T 296.90 MOOD DISORDER 01/11/2012 ALEXIA SMITH APRN T 455.6 Hemorrhoids Nos 01/11/2012 ALEXIA SMITH APRN T 465.9 Upper Respiratory Infection 01/11/2012 ALEXIA SMITH APRN T 564.00 Constipation 01/11/2012 ALEXIA SMITH APRN 296.90 MOOD DISORDER 01/11/2012 ALEXIA SMITH APRN 455.6 Hemorrhoids Nos 01/11/2012 ALEXIA SMITH APRN 465.9 Upper Respiratory Infection 01/11/2012 ALEXIA SMITH APRN 564.00 Constipation 03/21/2012 682.9 CELLULITIS AND ABSCESS OF UNSPECIFIED SITES 03/21/2012 ALEXIA SMITH APRN 682.9 CELLULITIS AND ABSCESS OF UNSPECIFIED SITES 03/21/2012 682.9 CELLULITIS AND ABSCESS OF UNSPECIFIED SITES 03/21/2012 ALEXIA SMITH APRN 682.9 CELLULITIS AND ABSCESS OF UNSPECIFIED SITES 03/21/2012 682.9 Cellulitis And Abscess Of Unspecified Sites 03/21/2012 682.9 Cellulitis And Abscess Of Unspecified Sites 03/21/2012 682.9 Cellulitis And Abscess Of Unspecified Sites 03/21/2012 ALXEIA SMITH APRN 682.9 Cellulitis And Abscess Of Unspecified Sites 03/21/2012 ALEXIA SMITH APRN 682.9 Cellulitis And Abscess Of Unspecified Sites 03/21/2012 ALEXIA SMITH APRN 682.9 Cellulitis And Abscess Of Unspecified Sites 03/21/2012 ALEXIA SMITH APRN 682.9 Cellulitis And Abscess Of Unspecified Sites 03/21/2012 ALEXIA SMITH APRN 682.9 Cellulitis And Abscess Of Unspecified Sites 03/21/2012 ALEXIA SMITH APRN 682.9 Cellulitis And Abscess Of Unspecified Sites 03/21/2012 ALEXIA SMITH APRN 682.9 Cellulitis And Abscess Of Unspecified Sites 04/25/2012 ALEXIA SMITH APRN 719.45 HIP PAIN 04/25/2012 719.45 HIP PAIN 04/25/2012 ALEXIA SMITH APRN 719.45 HIP PAIN 04/25/2012 719.45 HIP PAIN 04/25/2012 719.45 HIP PAIN 04/25/2012 719.45 HIP PAIN 04/25/2012 ALEXIA SMITH APRN 719.45 HIP PAIN 04/25/2012 ALEXIA SMITH APRN 719.45 HIP PAIN 04/25/2012 ALEXIA SMITH APRN 719.45 HIP PAIN 04/25/2012 ALEXIA SMITH APRN 719.45 HIP PAIN 04/25/2012 ALEXIA SMITH APRN T 719.45 HIP PAIN 04/25/2012 SARAH ELECTRONIC PREPRESS TECHNICIAN, ALEXIA T 719.45 HIP PAIN 04/25/2012 SARAH ELECTRONIC PREPRESS TECHNICIAN, ALEXIA T 719.45 HIP PAIN 07/14/2012 268.9 VITAMIN D DEFICIENCY 07/14/2012 782.1 RASH 07/14/2012 790.29 HYPERGLYCEMIA 07/14/2012 268.9 VITAMIN D DEFICIENCY 07/14/2012 782.1 RASH 07/14/2012 790.29 HYPERGLYCEMIA 07/14/2012 268.9 VITAMIN D DEFICIENCY 07/14/2012 782.1 RASH 07/14/2012 790.29 HYPERGLYCEMIA 07/14/2012 ALEXIA SMITH APRN T 268.9 VITAMIN D DEFICIENCY 07/14/2012 ALEXIA SMITH APRN T 782.1 RASH 07/14/2012 ALEXIA SMITH APRN T 790.29 HYPERGLYCEMIA 07/14/2012 ALEXIA SMITH APRN T 268.9 VITAMIN D DEFICIENCY 07/14/2012 ALEXIA SMITH APRN T 782.1 RASH 07/14/2012 SARAH MCLAUGHLINNALEXIA T 790.29 HYPERGLYCEMIA 07/14/2012 SARAH MCLAUGHLINNALEXIA T 268.9 VITAMIN D DEFICIENCY 07/14/2012 SARAH MCLAUGHLINNALEXIA T 782.1 RASH 07/14/2012 SARAH MCLAUGHLINNALEXIA T 790.29 HYPERGLYCEMIA 07/14/2012 SARAH MCLAUGHLINNALEXIA T 268.9 VITAMIN D DEFICIENCY 07/14/2012 ALEXIA SMITH APRN T 782.1 RASH 07/14/2012 ALEXIA SMITH APRN T 790.29 HYPERGLYCEMIA 07/14/2012 ALEXIA SMITH APRN T 268.9 VITAMIN D DEFICIENCY 07/14/2012 SARAH MCLAUGHLINNALEXIA T 782.1 RASH 07/14/2012 SARAH MCLAUGHLINNALEXIA T 790.29 HYPERGLYCEMIA 07/14/2012 SARAH MCLAUGHLINNALEXIA T 268.9 VITAMIN D DEFICIENCY 07/14/2012 SARAH MCLAUGHLINNALEXIA T 782.1 RASH 07/14/2012 SARAH MCLAUGHLINNALEXIA T 790.29 HYPERGLYCEMIA 07/14/2012 ALEXIA SMITH APRN T 268.9 VITAMIN D DEFICIENCY 07/14/2012 ALEXIA SMITH APRN T 782.1 RASH 07/14/2012 ALEXIA SMITH APRN T 790.29 HYPERGLYCEMIA 07/17/2012 782.3 EDEMA 07/17/2012 782.3 EDEMA 07/17/2012 ALEXIA SMITH APRN T 782.3 EDEMA 07/17/2012 ALEXIA SMITH APRN T 782.3 EDEMA 07/17/2012 ALEXIA SMITH APRN T 782.3 EDEMA 07/17/2012 ALEXIA SMITH APRN T 782.3 EDEMA 07/17/2012 ALEXIA SMITH APRN T 782.3 EDEMA 07/17/2012 ALEXIA SMITH APRN T 782.3 EDEMA 07/17/2012 ALEXIA SMITH APRN T 782.3 EDEMA 09/21/2012 ALEXIA SMITH APRN 305.1 TOBACCO ABUSE 09/21/2012 ALEXIA SMITH APRN 610.1 DIFFUSE CYSTIC MASTOPATHY 09/21/2012 ALEXIA SMITH APRN 611.71 MASTODYNIA 09/21/2012 ALEXIA SMITH APRN V16.3 FAM HX CANCER, BREAST 09/21/2012 ALEXIA SMITH APRN V72.31 WEB DESIGNER EXAM, ROUTINE 09/21/2012 ALEXIA SMITH APRN V74.5 STD SCREEN 09/21/2012 ALEXIA SMITH APRN V76.10 BREAST CANCER SCREENING 09/21/2012 ALEXIA SMITH APRN 305.1 TOBACCO ABUSE 09/21/2012 ALEXIA SMITH APRN 610.1 DIFFUSE CYSTIC MASTOPATHY 09/21/2012 ALEXIA SMITH APRN 611.71 MASTODYNIA 09/21/2012 ALEXIA SMITH APRN V16.3 FAM HX CANCER, BREAST 09/21/2012 ALEXIA SMITH APRN V72.31 WEB DESIGNER EXAM, ROUTINE 09/21/2012 ALEXIA SMITH APRN V74.5 STD SCREEN 09/21/2012 ALEXIA SMITH APRN V76.10 BREAST CANCER SCREENING 09/21/2012 ALEXIA SMITH APRN 305.1 TOBACCO ABUSE 09/21/2012 ALEXIA SMITH APRN 610.1 DIFFUSE CYSTIC MASTOPATHY 09/21/2012 ALEXIA SMITH APRN 611.71 MASTODYNIA 09/21/2012 ALEXIA SMITH APRN V16.3 FAM HX CANCER, BREAST 09/21/2012 ALEXIA SMITH APRN V72.31 WEB DESIGNER EXAM, ROUTINE 09/21/2012 ALEXIA SMITH APRN V74.5 STD SCREEN 09/21/2012 ALEXIA SMITH APRN V76.10 BREAST CANCER SCREENING 09/21/2012 ALEXIA SMITH APRN 305.1 TOBACCO ABUSE 09/21/2012 ALEXIA SMITH APRN T 610.1 DIFFUSE CYSTIC MASTOPATHY 09/21/2012 ALEXIA SMITH APRN 611.71 MASTODYNIA 09/21/2012 ALEXIA SMITH APRN V16.3 FAM HX CANCER, BREAST 09/21/2012 ALEXIA SMITH APRN V72.31 WEB DESIGNER EXAM, ROUTINE 09/21/2012 ALEXIA SMITH APRN V74.5 STD SCREEN 09/21/2012 ALEXIA SMITH APRN V76.10 BREAST CANCER SCREENING 09/21/2012 ALEXIA SMITH APRN 305.1 TOBACCO ABUSE 09/21/2012 ALEXIA SMITH APRN 610.1 DIFFUSE CYSTIC MASTOPATHY 09/21/2012 ALEXIA SMITH APRN 611.71 MASTODYNIA 09/21/2012 ALEXIA SMITH APRN V16.3 FAM HX CANCER, BREAST 09/21/2012 ALEXIA SMITH APRN V72.31 WEB DESIGNER EXAM, ROUTINE 09/21/2012 ALEXIA SMITH APRN V74.5 STD SCREEN 09/21/2012 ALEXIA SMITH APRN V76.10 BREAST CANCER SCREENING 09/21/2012 ALEXIA SMITH APRN 305.1 TOBACCO ABUSE 09/21/2012 ALEXIA SMITH APRN 610.1 DIFFUSE CYSTIC MASTOPATHY 09/21/2012 ALEXIA SMITH APRN 611.71 MASTODYNIA 09/21/2012 ALEXIA SMITH APRN V16.3 FAM HX CANCER, BREAST 09/21/2012 ALEXIA SMITH APRN V72.31 WEB DESIGNER EXAM, ROUTINE 09/21/2012 ALEXIA SMITH APRN V74.5 STD SCREEN 09/21/2012 ALEXIA SMITH APRN V76.10 BREAST CANCER SCREENING 09/21/2012 ALEXIA SMITH APRN 305.1 TOBACCO ABUSE 09/21/2012 ALEXIA SMITH APRN 610.1 DIFFUSE CYSTIC MASTOPATHY 09/21/2012 ALEXIA SMITH APRN 611.71 MASTODYNIA 09/21/2012 ALEXIA SMITH APRN V16.3 FAM HX CANCER, BREAST 09/21/2012 ALEXIA SMITH APRN V72.31 WEB DESIGNER EXAM, ROUTINE 09/21/2012 ALEXIA SMITH APRN V74.5 STD SCREEN 09/21/2012 ALEXIA SMITH APRN V76.10 BREAST CANCER SCREENING 04/17/2013 ALEXIA SMITH APRN T 381.81 EUSTACHIAN TUBE DYSFUNCTION 04/17/2013 ALEXIA SMITH APRN T 381.81 EUSTACHIAN TUBE DYSFUNCTION 04/17/2013 ALEXIA SMITH APRN T 381.81 EUSTACHIAN TUBE DYSFUNCTION 04/17/2013 ALEXIA SMITH APRN T 381.81 EUSTACHIAN TUBE DYSFUNCTION 04/17/2013 ALEXIA SMITH APRN T 381.81 EUSTACHIAN TUBE DYSFUNCTION 04/17/2013 ALEXIA SMITH APRN T 381.81 EUSTACHIAN TUBE DYSFUNCTION 05/22/2013 ALEXIA SMITH APRN T 477.9 RHINITIS 05/22/2013 ALEXIA SMITH APRN T 535.50 GASTRITIS UNSPEC 05/22/2013 ALEXIA SMITH APRN 477.9 RHINITIS 05/22/2013 ALEXIA SMITH APRN T 535.50 GASTRITIS UNSPEC 05/22/2013 ALEXIA SMITH APRN T 477.9 RHINITIS 05/22/2013 ALEXIA SMITH APRN 535.50 GASTRITIS UNSPEC 05/22/2013 ALEXIA SMITH APRN 477.9 RHINITIS 05/22/2013 ALEXIA SMITH APRN 535.50 GASTRITIS UNSPEC 05/22/2013 ALEXIA SMITH APRN 477.9 RHINITIS 05/22/2013 ALEXIA SMITH APRN 535.50 GASTRITIS UNSPEC 07/24/2013 ALEXIA SMITH APRN T 278.00 OBESITY 07/24/2013 ALEXIA SMITH APRN 278.00 OBESITY 07/24/2013 ALEXIA SMITH APRN 278.00 OBESITY 07/24/2013 ALEXIA SMITH APRN 278.00 OBESITY 05/27/2014 ALEXIA SMITH APRN 401.1 HYPERTENSION, BENIGN ESSENTIAL 05/27/2014 ALEXIA SMITH APRN 611.71 MASTODYNIA 07/22/2014 ALEXIA SMITH APRN 729.2 NEURALGIA NEURITIS AND RADICULITIS UNSPECIFIED 07/29/2014 CLAY PÉREZ APRN Ot 611.9 07/29/2014 CLAY PÉREZ APRN Ot V16.3 08/06/2014 CLAY PÉREZ APRN Ot 611.9 08/06/2014 CLAY PÉREZ APRN Ot V16.3 08/06/2014 ALEXIA SMITH SOFTBALL CORE MOLDER Ot 724.02 08/06/2014 JUNI SMITH, SAMMI Golden Ot 305.1 TOBACCO USE DISORDER 08/06/2014 JUNI SMITH, SAMMI Golden Ot 786.09 RESPIRATORY ABNORM NEC 08/06/2014 SAMMI ALFREDO MD Ot 786.50 CHEST PAIN NOS 08/06/2014 SAMMI ALFREDO MD Ot 786.59 CHEST PAIN NEC 08/27/2014 ALEXIA SMITH SOFTBALL CORE MOLDER Ot 724.02 08/28/2014 CLAY PÉREZ ELECTRONIC PREPRESS TECHNICIAN Ot 611.9 08/28/2014 CLAY PÉREZ ELECTRONIC PREPRESS TECHNICIAN Ot V16.3 08/28/2014 ALEXIA SMITH SOFTBALL CORE MOLDER Ot 724.02 08/28/2014 TYLER SIMMS ELECTRONIC PREPRESS TECHNICIAN Ot 300.4 DYSTHYMIC DISORDER 08/28/2014 TYLER SIMMS ELECTRONIC PREPRESS TECHNICIAN Ot 305.90 DRUG ABUSE NEC-UNSPEC 08/28/2014 TYLER SIMMS ELECTRONIC PREPRESS TECHNICIAN Ot 311 DEPRESSIVE DISORDER NEC 08/28/2014 TYLER SIMMS ELECTRONIC PREPRESS TECHNICIAN Ot 599.0 URIN TRACT INFECTION NOS 08/28/2014 TYLER SIMMS ELECTRONIC PREPRESS TECHNICIAN Ot V62.84 SUICIDAL IDEATION 09/08/2014 CLAY PÉREZ A ELECTRONIC PREPRESS TECHNICIAN Ot 611.9 09/08/2014 CLAY PÉREZ ELECTRONIC PREPRESS TECHNICIAN Ot V16.3 09/08/2014 ALEXIA SMITH SOFTBALL CORE MOLDER Ot 724.02 09/09/2014 CLAY PÉERZ ELECTRONIC PREPRESS TECHNICIAN Ot 611.9 09/09/2014 CLAY PÉREZ A ELECTRONIC PREPRESS TECHNICIAN Ot V16.3 09/09/2014 ALEXIA SMITH SOFTBALL CORE MOLDER Ot 724.02 09/09/2014 ALEXIA SMITH SOFTBALL CORE MOLDER Ot 724.02 09/09/2014 HARVEY SEGAL MD Ot 300.00 09/09/2014 HARVEY SEGAL MD Ot 311 09/09/2014 HARVEY SEGAL MD Ot 355.9 09/09/2014 HARVEY SEGAL MD Ot 401.9 09/09/2014 HARVEY SEGAL MD Ot 530.81 09/09/2014 HARVEY SEGAL MD Ot 969.3 09/09/2014 HARVEY SEGAL MD Ot 969.5 09/09/2014 HARVEY SEGAL MD Ot E849.0 09/09/2014 PHILIPP SMITH, HARVEY Damcio Ot E950.3 09/10/2014 PHILIPP SMITH, HARVEY Damico Ot 300.00 09/10/2014 PHILIPP SMITH, HARVEY Damico Ot 311 09/10/2014 PHILIPP SMITH, HARVEY Damico Ot 355.9 09/10/2014 PHILIPP SMITH, HARVEY Damico Ot 401.9 09/10/2014 PHILIPP MSITH, HARVEY Damico Ot 530.81 09/10/2014 PHILIPP SMITH, HARVEY Damico Ot 969.3 09/10/2014 HARVEY SEGAL MD Ot 969.5 09/10/2014 HARVEY SEGAL MD Ot E849.0 09/10/2014 HARVEY SEGAL MD Ot E950.3 09/10/2014 HARVEY SEGAL MD Ot 300.00 09/10/2014 PHILIPP SMITH, HARVEY Damico Ot 311 09/10/2014 PHILIPP SMITH, HARVEY Damico Ot 355.9 09/10/2014 PHILIPP SMITH, HARVEY Damico Ot 401.9 09/10/2014 PHILIPP SMITH, HARVEY Damico Ot 530.81 09/10/2014 PHILIPP SMITH, HARVEY Damico Ot 969.3 09/10/2014 HARVEY SEGAL MD Ot 969.5 09/10/2014 HARVEY SEGAL MD Ot E849.0 09/10/2014 HARVEY SEGAL MD Ot E950.3 09/10/2014 CLAY PÉREZ APRN Ot 611.9 09/10/2014 CLAY PÉREZ APRN Ot V16.3 09/10/2014 ALEXIA SMITH Ot 724.02 10/08/2014 ALEXIA SMITHP Ot 724.02 10/18/2014 CLAY PÉREZ APRN Ot 611.9 10/18/2014 CLAY PÉREZ APRN Ot V16.3 10/18/2014 ALEXIA SMITH Ot 724.02 12/11/2014 CLAY PÉREZ APRN Ot 611.9 12/11/2014 CLAY PÉREZ APRN Ot V16.3 12/11/2014 ALEXIA SMITH SOFTBALL CORE MOLDER Ot 724.02 12/30/2014 SARAHALEXIA SOFTBALL CORE MOLDER Ot 724.02 02/05/2015 CLAY PÉREZ ELECTRONIC PREPRESS TECHNICIAN Ot 611.9 02/05/2015 CLAY PÉREZ ELECTRONIC PREPRESS TECHNICIAN Ot V16.3 02/05/2015 SARAHALEXIA SOFTBALL CORE MOLDER Ot 724.02 02/06/2015 CLAY PÉREZ ELECTRONIC PREPRESS TECHNICIAN Ot 611.9 02/06/2015 CLAY PÉREZ ELECTRONIC PREPRESS TECHNICIAN Ot V16.3 02/06/2015 SARAHALEXIA SOFTBALL CORE MOLDER Ot 724.02 02/06/2015 TANNER SMITH, JILL N Ot F17.210 02/06/2015 TANNER SMITH, JILL N Ot F32.9 02/06/2015 TANNER SMITH, JILL N Ot F41.9 02/06/2015 TANNER SMITH, JILL N Ot I10 02/06/2015 TANNER SMITH, JILL N Ot R07.9 02/06/2015 TANNER SMITH, JILL N Ot Z82.49 02/06/2015 TANNER SMITH, JILL N Ot F17.210 02/06/2015 TANNER SMITH, JILL N Ot F32.9 02/06/2015 TANNER SMITH, JILL N Ot F41.9 02/06/2015 TANNER SMITH, JILL N Ot I10 02/06/2015 TANNER SMTIH, JILL N Ot R07.9 02/06/2015 TANNER SMITH, JILL N Ot Z82.49 02/03/2016 BETO CLAY Héctor ELECTRONIC PREPRESS TECHNICIAN Ot 611.9 BREAST DISORDER NOS 02/03/2016 BETOCLAY ELECTRONIC PREPRESS TECHNICIAN Ot V16.3 FAMILY HX-BREAST MALIG 02/03/2016 ALEXIA SMITH SOFTBALL CORE MOLDER Ot 724.02 SPINAL STENOSIS, LUMBAR REG, W/OUT NEURO 02/04/2016 BART SMITH, ROSSY Anaya Ot A41.9 SEPSIS, UNSPECIFIED ORGANISM 02/04/2016 ROSSY ARRIAGA MD Ot F32.9 MAJOR DEPRESSIVE DISORDER, SINGLE EPISOD 02/04/2016 BART SMITH, ROSSY Anaya Ot I10 ESSENTIAL (PRIMARY) HYPERTENSION 02/04/2016 ROSSY ARRIAGA MD Ot K21.9 GASTRO-ESOPHAGEAL REFLUX DISEASE WITHOUT 02/04/2016 ROSSY ARRIAGA MD Ot N12 TUBULO-INTERSTITIAL NEPHRITIS, NOT SPCF 02/05/2016 ROSSY ARRIAGA MD Ot A41.9 SEPSIS, UNSPECIFIED ORGANISM 02/05/2016 ROSSY ARRIAGA MD Ot E11.9 TYPE 2 DIABETES MELLITUS WITHOUT COMPLIC 02/05/2016 ROSSY ARRIAGA MD Ot F32.9 MAJOR DEPRESSIVE DISORDER, SINGLE EPISOD 02/05/2016 ROSSY ARRIAGA MD Ot I10 ESSENTIAL (PRIMARY) HYPERTENSION 02/05/2016 ROSSY ARRIAGA MD, Ot K21.9 GASTRO-ESOPHAGEAL REFLUX DISEASE WITHOUT 02/05/2016 ROSSY ARRIAGA MD, Ot N12 TUBULO-INTERSTITIAL NEPHRITIS, NOT SPCF 02/05/2016 ROSSY ARRIAGA MD Ot Z79.84 PAPER GUILLOTINE OPERATOR (CURRENT) USE OF ORAL HYPOGLYC 02/18/2016 Ot 722.52 LUMB/LUMBOSAC DISC DEGEN 02/18/2016 CLAY PÉREZ ELECTRONIC PREPRESS TECHNICIAN Ot 611.9 BREAST DISORDER NOS 02/18/2016 CLAY PÉREZ ELECTRONIC PREPRESS TECHNICIAN Ot V16.3 FAMILY HX-BREAST MALIG 02/18/2016 Ot 722.52 LUMB/LUMBOSAC DISC DEGEN 02/19/2016 Ot 276.8 HYPOPOTASSEMIA 02/19/2016 Ot 300.00 ANXIETY STATE NOS 02/19/2016 Ot 305.20 CANNABIS ABUSE-UNSPEC 02/19/2016 Ot 780.4 DIZZINESS AND GIDDINESS 03/03/2016 CLARITA HSU Ot F17.210 NICOTINE DEPENDENCE, CIGARETTES, UNCOMPL 03/03/2016 CLARITA HSU Ot G89.29 OTHER CHRONIC PAIN 03/03/2016 CLARITA HSU Ot I10 ESSENTIAL (PRIMARY) HYPERTENSION 03/03/2016 CLARITA HSU Ot M54.16 RADICULOPATHY, LUMBAR REGION 03/03/2016 CLARITA HSU Ot M54.5 LOW BACK PAIN 03/03/2016 CLARITA HSU Ot Z79.891 PAPER GUILLOTINE OPERATOR (CURRENT) USE OF OPIATE ANALGE 03/03/2016 CLARITA HSU Ot Z79.899 OTHER PAPER GUILLOTINE OPERATOR (CURRENT) DRUG THERAPY 03/04/2016 CLARITA HSU Ot F17.210 NICOTINE DEPENDENCE, CIGARETTES, UNCOMPL 03/04/2016 CLARITA HSU L Ot G89.29 OTHER CHRONIC PAIN 03/04/2016 CLARITA HSU Ot I10 ESSENTIAL (PRIMARY) HYPERTENSION 03/04/2016 CLARITA HSU L Ot M54.16 RADICULOPATHY, LUMBAR REGION 03/04/2016 CLARITA HSU Ot M54.5 LOW BACK PAIN 03/04/2016 CLARITA HSU Ot Z79.891 RETIREMENT (CURRENT) USE OF OPIATE ANALGE 03/04/2016 CLARITA HSU L Ot Z79.899 OTHER RETIREMENT (CURRENT) DRUG THERAPY 03/05/2016 CLARITA HSU Ot F17.210 NICOTINE DEPENDENCE, CIGARETTES, UNCOMPL 03/05/2016 CLARITA HSU L Ot G89.29 OTHER CHRONIC PAIN 03/05/2016 CLARITA HSU Ot I10 ESSENTIAL (PRIMARY) HYPERTENSION 03/05/2016 CLARITA HSU Ot M54.16 RADICULOPATHY, LUMBAR REGION 03/05/2016 CLARITA HSU Ot M54.5 LOW BACK PAIN 03/05/2016 CLARITA HSU Ot Z79.891 RETIREMENT (CURRENT) USE OF OPIATE ANALGE 03/05/2016 CLARITA HSU L Ot Z79.899 OTHER PAPER GUILLOTINE OPERATOR (CURRENT) DRUG THERAPY 09/15/2016 CATERINA PACE APRN Ot K58.0 IRRITABLE BOWEL SYNDROME WITH DIARRHEA 09/15/2016 CATERINA PACE ELECTRONIC PREPRESS TECHNICIAN Ot K76.0 FATTY (CHANGE OF) LIVER, NOT ELSEWHERE C Procedures Code Description [place] [address] ROUTINE VENIPUNCTURE 07/11/2012 17813 H PYLORI (IN-HOUSE) 07/11/2012 87913 CBC 07/11/2012 26705 LIPID PANEL 07/11 98516 CMP 07/11/2012 2681703 GFR CALC (RESULT ONLY) 07/11/2012 [id number] VITAMIN B 12 FOLIC ACID (RESULT ONLY) 07/11/2012 65508 TSH 07/11/2012 84145 VITAMIN D 25-HYDROXY (D2,D3, TOTAL) 07/11/2012 45155 ROUTINE VENIPUNCTURE 07/14/2012 18198 A1C (RML) 2012 65950 ROUTINE VENIPUNCTURE 09/21/2012 92775 TRICHOMONAS (IN-HOUSE) 09/21/2012 16308 VITAMIN D 25-HYDROXY (D2,D3, TOTAL) 09/21/2012 28015 CULTURE UROGENITAL 09/24/2012 09445 MAMMOGRAM DX, MARISOL 09/24/2012 87873 GC/CHLAM PROBE (STATE) 09/24/2012 46152 ROUTINE VENIPUNCTURE 07/24/2013 04712 TSH 07/24/2013 93962 CBC 07/24/2013 87634 CMP 07/24/2013 [id number] GFR CALC (RESULT ONLY) 07/24/2013 81319 MRI SPINE (LUMBAR) W/O CONTRAST 07/22/2014 Results Test Result Range Complete urinalysis with reflex to culture - 02/03/16 10:00 Urine color determination YELLOW NRG Urine clarity determination CLEAR NRG Urine pH measurement by test strip 6 5- 9 Specific gravity of urine by test strip 1.015 1.016-1.022 Urine protein assay by test strip, semi-quantitative 3+ NEGATIVE Urine glucose detection by automated test strip NEGATIVE NEGATIVE Erythrocytes detection in urine sediment by light microscopy 5+ NEGATIVE Urine ketones detection by automated test strip 1+ NEGATIVE Urine nitrite detection by test strip POSITIVE NEGATIVE Urine total bilirubin detection by test strip NEGATIVE NEGATIVE Urine urobilinogen measurement by automated test strip (mass/volume) NORMAL NORMAL Urine leukocyte esterase detection by dipstick 3+ NEGATIVE Automated urine sediment erythrocyte count by microscopy (number/high power field) [HPF] NRG Automated urine sediment leukocyte count by microscopy (number/high power field ) TNTC NRG Bacteria detection in urine sediment by light microscopy MODERATE NRG Squamous epithelial cells detection in urine sediment by light microscopy 5-10 NRG Crystals detection in urine sediment by light microscopy NONE NRG Casts detection in urine sediment by light microscopy NONE NRG Mucus detection in urine sediment by light microscopy NEGATIVE NRG Complete urinalysis with reflex to culture YES NRG Bacterial urine culture - 02/03/16 10:00 Bacterial urine culture [id number] NRG COLONY COUNT >100,000/ML NRG FTX;REPORTABLE SENSTIVITY REPORTED 02/03 14:05 NRG URINE CULTURE RESULTS PLUS NRG Bacterial susceptibility panel - 02/03/16 10:00 Gentamicin susceptibility test by minimum inhibitory concentration <= NRG Trimethoprim/sulfamethoxazole susceptibility test by minimum inhibitoryconcentration >= NRG Ampicillin susceptibility test by minimum inhibitory concentration >= NRG Tobramycin susceptibility test by minimum inhibitory concentration <= NRG Cefazolin susceptibility test by minimum inhibitory concentration <= NRG Ceftriaxone susceptibility test by minimum inhibitory concentration <= NRG Ampicillin/sulbactam susceptibility test by minimum inhibitory concentration 16 NRG Piperacillin/tazobactam susceptibility test by minimum inhibitory concentration <= NRG Ciprofloxacin susceptibility test by minimum inhibitory concentration <= NRG Meropenem susceptibility test by minimum inhibitory concentration <= NRG Nitrofurantoin susceptibility test by minimum inhibitory concentration <= NRG Aztreonam susceptibility test by minimum inhibitory concentration <= NRG Extended spectrum beta lactamase (ESBL) producing bacteria susceptibility test by minimum inhibitory concentration - NRG Complete blood count (CBC) with automated white blood cell (WBC) differential - 02/03/16 11:00 Blood leukocytes automated count (number/volume) 19.0 10*3/ uL 4.3-11.0 Blood erythrocytes automated count (number/volume) 4.62 10*6 /uL 4.35-5.85 Venous blood hemoglobin measurement (mass/volume) 14.7 g/dL 11.5-16.0 Blood hematocrit (volume fraction) 44 % 35-52 Automated erythrocyte mean corpuscular volume 94 [foz_us] 80-99 Automated erythrocyte mean corpuscular hemoglobin (mass per erythrocyte) 32 pg 25-34 Automated erythrocyte mean corpuscular hemoglobin concentration measurement ( mass/volume) 34 g/dL 32-36 Automated erythrocyte distribution width ratio 12.7 % 10.0-14.5 Automated blood platelet count (count/volume) 286 10*3/uL 130-400 Automated blood platelet mean volume measurement 10.1 [foz_ us] 7.4-10.4 Automated blood neutrophils/100 leukocytes 77 % 42-75 Automated blood lymphocytes/100 leukocytes 13 % 12-44 Blood monocytes/100 leukocytes 10 % 0-12 Automated blood eosinophils/100 leukocytes 1 % 0-10 Automated blood basophils/100 leukocytes 0 % 0-10 Blood neutrophils automated count (number/volume) 14.6 10*3 1.8-7.8 Blood lymphocytes automated count (number/volume) 2.4 10*3 1.0-4.0 Blood monocytes automated count (number/volume) 1.8 10*3 0.0-1.0 Automated eosinophil count 0.2 10*3/uL 0.0-0.3 Automated blood basophil count (count/volume) 0.0 10*3/uL 0.0-0.1 Blood manual differential performed detection - 02/03/16 11:00 Blood monocytes/100 leukocytes 6 % NRG Manual blood segmented neutrophils/100 leukocytes 82 % NRG Blood band neutrophils/100 leukocytes 0 % NRG Manual blood lymphocytes/100 leukocytes 10 % NRG Manual eosinophils/100 leukocytes in nose 2 % NRG Manual blood basophils/100 leukocytes 0 % NRG Blood erythrocyte morphology finding identification NORMAL NRG Bacterial blood culture - 02/03/16 11:50 Bacterial blood culture NG NRG Blood lactic acid measurement (moles/volume) - 02/03/16 12:06 Blood lactic acid measurement (moles/volume) 0.8 mmol/L 0.5-2.0 Comprehensive metabolic panel - 02/03/16 12:06 Serum or plasma sodium measurement (moles/volume) 142 mmol/ L 135-145 Serum or plasma potassium measurement (moles/volume) 3.3 mmol/L 3.6-5.0 Serum or plasma chloride measurement (moles/volume) 109 mmol /L 98-107 Carbon dioxide 21 mmol/L 21-32 Serum or plasma anion gap determination (moles/volume) 12 mmol/L 5-14 Serum or plasma urea nitrogen measurement (mass/volume) 9 mg /dL 7-18 Serum or plasma creatinine measurement (mass/volume) 0.61 mg /dL 0.60-1.30 Serum or plasma urea nitrogen/creatinine mass ratio 15 NRG Serum or plasma creatinine measurement with calculation of estimated glomerular filtration rate > NRG Serum or plasma glucose measurement (mass/volume) 112 mg/dL 70-105 Serum or plasma calcium measurement (mass/volume) 8.9 mg/dL 8.5-10.1 Serum or plasma total bilirubin measurement (mass/volume) 0.6 mg/dL 0.1-1.0 Serum or plasma alkaline phosphatase measurement (enzymatic activity/volume) 64 U/L 40-136 Serum or plasma aspartate aminotransferase measurement (enzymatic activity/ volume) 17 U/L 5-34 Serum or plasma alanine aminotransferase measurement (enzymatic activity/volume ) 31 U/L 0-55 Serum or plasma protein measurement (mass/volume) 6.3 g/dL 6.4-8.2 Serum or plasma albumin measurement (mass/volume) 4.0 g/dL 3.2-4.5 Lipase - 02/03/16 12:06 Lipase 7 U/L 8-78 Bacterial blood culture - 02/03/16 12:06 Bacterial blood culture NG NRG Complete urinalysis with reflex to culture - 03/03/16 17:25 Urine color determination YELLOW NRG Urine clarity determination CLEAR NRG Urine pH measurement by test strip 6.5 5 -9 Specific gravity of urine by test strip 1.005 1.016-1.022 Urine protein assay by test strip, semi-quantitative NEGATIVE NEGATIVE Urine glucose detection by automated test strip NEGATIVE NEGATIVE Erythrocytes detection in urine sediment by light microscopy 1+ NEGATIVE Urine ketones detection by automated test strip NEGATIVE NEGATIVE Urine nitrite detection by test strip NEGATIVE NEGATIVE Urine total bilirubin detection by test strip NEGATIVE NEGATIVE Urine urobilinogen measurement by automated test strip (mass/volume) NORMAL NORMAL Urine leukocyte esterase detection by dipstick NEGATIVE NEGATIVE Automated urine sediment erythrocyte count by microscopy (number/high power field) RARE NRG Automated urine sediment leukocyte count by microscopy (number/high power field ) RARE NRG Bacteria detection in urine sediment by light microscopy TRACE NRG Squamous epithelial cells detection in urine sediment by light microscopy 2-5 NRG Crystals detection in urine sediment by light microscopy NONE NRG Casts detection in urine sediment by light microscopy NONE NRG Mucus detection in urine sediment by light microscopy NEGATIVE NRG Complete urinalysis with reflex to culture NO NRG Encounters ACCT No. Visit Date/Time Discharge Status Pt. Type Provider Facility Loc./Unit Complaint [id number] 07/22/2014 12:39:00 07/22/2014 23: 59:59 CLS Outpatient ALEXIA SMITH APRN [id number] 04/30/2014 08:02:00 04/30/2014 23: 59:59 CLS Outpatient ALEXIA SMTIH APRN [id number] 04/22/2014 08:52:00 04/22/2014 23: 59:59 CLS Outpatient ALEXIA SMITH APRN [id number] 07/24/2013 09:02:00 07/24/2013 23: 59:59 CLS Outpatient ALEXIA SMITH APRN [id number] 05/22/2013 09:23:00 05/22/2013 23: 59:59 CLS Outpatient ALEXIA SMITH APRN [id number] 04/17/2013 09:23:00 04/17/2013 23: 59:59 CLS Outpatient ALEXIA SMITH APRN [id number] 09/21/2012 10:40:00 09/21/2012 23: 59:59 CLS Outpatient ALEXIA SMITH APRN [id number] 07/11/2012 07:58:00 07/11/2012 23: 59:59 CLS Outpatient ALEXIA SMITH APRN [id number] 07/07/2012 09:10:00 07/07/2012 23: 59:59 CLS Outpatient [id number] 04/25/2012 09:17:00 04/25/2012 23: 59:59 CLS Outpatient ALEXIA SMITH APRN [id number] 03/21/2012 15:11:00 03/21/2012 23: 59:59 CLS Outpatient [id number] 09/05/2012 14:39:00 Document Registration [id number] 07/17/2012 11:15:00 Document Registration [id number] 07/14/2012 10:11:00 Document Registration
--- OUTSIDE RECORDS SUMMARY | 2016-09-30 11:50 | XMS REPORT ---
Author ALEXIA Lehman [facility] eClinical[employer] Address Unknown Phone Unavailable Care Team Providers Care Bridge Leverman Name Role Phone ALEXIA SMITH CP Unavailable Allergies, Adverse Reactions, Alerts Substance Reaction Event Type Sulfamethoxazole Info Not Available Drug Allergy Depakote chest pain, nausea, slobbering Drug Allergy Problems Problem Type Condition Code Onset Dates Condition Status Assessment Hypertension, benign I10 Active Assessment Neuropathy G62.9 Active Problem Hypertension, benign I10 Active Assessment Mood disorder F39 Active Medications Medication Code System Code Instructions Start Date End Date Status Dosage Seroquel [facility] [address]-50 100 MG Orally Twice a day May 27, 2014 1 tablet Parafon Forte DSC [facility] [address]-99 500 MG Orally 2 times a day voucher 1st fill only Dec 04, 2014 1 tablet Trazodone HCl [facility] [address]-31 150 MG Orally Once a day Feb 03, 2015 2 tablets Prilosec [facility] [address]-07 40 MG Orally Once a day 1 capsule Metoprolol Tartrate [facility] [address]-25 100 MG every 12 hrs Apr 22, 2014 1 tablet BusPIRone HCl [facility] [address]-19 10 MG Orally Twice a day Feb 03, 2015 1 tablet Brintellix [facility] [address]-12 5 MG Orally Once a day Feb 03, 2015 4 tablets Brintellix [facility] [address]-20 10 MG Orally Once a day September 18, 2014 2 tablets Tramadol HCl [facility] [address]-45 50 MG Orally every 4 hrs Dec 04, 2014 1 tablet as needed Lyrica [facility] [address]-12 75 MG Orally Twice a day September 18, 2014 1 capsule Procedures Procedure Coding System Code Date Office Visit, Est Pt., Level 3 CPT-4 62961 Mar 05, 2015 Vital Signs Date/Time: Mar 05, 2015 Temperature 97.9 F Weight 196.4 lbs Height 63 in BMI 34.79 Index Blood Pressure Diastolic 84 mmHg Blood Pressure Systolic 138 mmHg Cardiac Monitoring Heart Rate 68 bpm Results No Known Results Summary Purpose eClinicalWorks Submission
--- OUTSIDE RECORDS SUMMARY | 2016-09-30 11:50 | XMS REPORT ---
Author Author ALEXIA SMITH Organization e[employer] Address Unknown Phone Unavailable Care Team Providers Care Ore Smelter Name Role Phone ALEXIA SMITH CP Unavailable Allergies No Known Allergies Problems Problem Type Condition Code Onset Dates Condition Status Problem Hypertension, benign I10 Active Problem Other chronic pain G89.29 Active Medications No Known Medications Results No Known Results Summary Purpose eClinicalWorks Submission
--- OUTSIDE RECORDS SUMMARY | 2016-09-30 11:50 | XMS REPORT ---
Author ALEXIA Lehman Organization e[employer] Address Unknown Phone Unavailable Care Team Providers Care Assembler Small Products Name Role Phone ALEXIA SMITH CP Unavailable Allergies No Known Allergies Problems Problem Type Condition Code Onset Dates Condition Status Problem Hypertension, benign I10 Active Medications Medication Code System Code Instructions Start Date End Date Status Dosage Tramadol HCl [facility] [address]-74 50 mg Orally every 4 hrs Dec 04, 2014 1 tablet as needed Results No Known Results Summary Purpose eClinicalWorks Submission
--- OUTSIDE RECORDS SUMMARY | 2016-09-30 11:50 | XMS REPORT ---
Author Author ALEXIA SMITH [facility] Address [address] [place] [address] Care Team Providers Care Matrix Supervisor Name Role Phone ALEXIA SMITH Unavailable PROBLEMS Type Condition ICD9-CM Code VUQ10-UB Code Onset Dates Condition Status SNOMED Code Problem Hypertension, benign I10 Active 27158153 Assessment Seasonal allergic rhinitis, unspecified allergic rhinitis trigger J30.2 Dec, Active 774717893 Assessment Other chronic pain G89.29 Dec, Active 95024912 Assessment Pain in right knee M25.561 Dec, Active 99674485 ALLERGIES Substance Reaction Event Type Date Status Fetzima made pt very angry/depressed Drug Allergy Dec, Active Sulfamethoxazole Unknown Drug Allergy Dec, Active Depakote chest pain, nausea, slobbering Drug Allergy Dec, Active SOCIAL HISTORY No smoking Hx information available PLAN OF CARE VITAL SIGNS Height 63 in 2015-12-09 Weight 196.0 lbs 2015-12-09 Heart Rate 82 bpm 2015-12-09 Respiratory Rate 18 2015-12-09 BMI 34.72 kg/m2 2015-12-09 Blood pressure systolic 118 mmHg 2015-12-09 Blood pressure diastolic 76 mmHg 2015-12-09 MEDICATIONS Medication Instructions Dosage Frequency Start Date End Date Duration Status Metoprolol Tartrate 50 mg Orally Twice a day 1 tablet h August, Active Seroquel 100 MG Orally take 2 tabs at bedtime 1 tablet in AM May, Active Zantac 150 MG Orally Once a day 1 tablet at bedtime 24h Oct, Active Parafon Forte DSC 500 MG Orally 2 times a day 1 tablet 12h Dec, Active Cetirizine HCl 10 mg Orally Once a day. PLEASE VOUCHER 1 tablet Oct, 30 day(s) Active Hydrochlorothiazide 25 MG Orally Once a day 1 tablet 24h Jul, 90 days Active Protonix 40 mg Orally Once a day 1 tablet 24h August, 90 days Active GlipiZIDE 5 mg Orally Once a day 1 tablet 24h 07 Jul, 2015 90 days Active [place] 10-325 MG Orally 3 times a day 1 tablet as needed 8h 15 Nov, 2015 Active Brintellix 20 mg Orally Once a day 1 tablet 24h 30 days Active RESULTS No Results PROCEDURES Procedure Date Ordered Related Diagnosis Body Site JOINT INJECTION-LARGE JOINT 2015-12-09 N/A KENALOG 40 MG/ML (PER 10 MG) Dec 09, 2015 DRAIN/INJECT, JOINT/BURSA Dec 09, 2015 THER/PROPH/DIAG INJ, SC/IM Dec 09, 2015 Office Visit, Est Pt., Level 2 Dec 09, 2015 IMMUNIZATIONS Vaccine Route Administration Date Status KENALOG 40 MG/ML (PER 10 MG) IM Intramuscular Dec 09, 2015 Administered
--- OUTSIDE RECORDS SUMMARY | 2016-09-30 11:50 | XMS REPORT ---
Author Author ALEXIA SMITH Organization e[employer] Address Unknown Phone Unavailable Care Team Providers Care Rig Site Engineer Name Role Phone ALEXIA SMITH CP Unavailable Allergies, Adverse Reactions, Alerts Substance Reaction Event Type Fetzima made pt very angry/depressed Drug Allergy Sulfamethoxazole Info Not Available Drug Allergy Depakote chest pain, nausea, slobbering Drug Allergy Problems Problem Type Condition Code Onset Dates Condition Status Problem Hypertension, benign I10 Active Assessment Low back pain M54.5 Active Problem Other chronic pain G89.29 Active Assessment Other chronic pain G89.29 Active Assessment Pain in right knee M25.561 Active Medications Medication Code System Code Instructions Start Date End Date Status Dosage Metoprolol Tartrate [facility] [address]-99 50 mg Orally Twice a day August 08, 2015 1 tablet GlipiZIDE [facility] [address]-41 5 mg Orally Once a day July 10, 2015 1 tablet Zantac [facility] [address]-27 150 MG Orally Once a day October 17, 2015 1 tablet at bedtime Brintellix [facility] 0 20 mg Orally Once a day 1 tablet Vicoprofen [facility] [address]-72 7.5-200 MG Orally every 6 hrs Jan 19, 2016 1 tablet as needed Seroquel [facility] [address]-22 100 MG Orally 3 times a day, voucher 1st fill only May 27, 2014 1 tablet Cetirizine HCl [facility] [address]-01 10 mg Orally Once a day, voucher 1st fill only October 17, 2015 1 tablet Protonix [facility] [address]-19 40 mg Orally Once a day, voucher 1st fill only August 08, 2015 1 tablet Parafon Forte DSC [facility] [address]-53 500 MG Orally 2 times a day Dec 04, 2014 1 tablet BusPIRone HCl [facility] [address]-04 10 mg Orally Twice a day Dec 22, 2015 1 tablet Hydrochlorothiazide [facility] [address]-11 25 MG Orally Once a day July 10, 2015 1 tablet Procedures Procedure Coding System Code Date Office Visit, Est Pt., Level 3 CPT-4 50279 Jan 19, 2016 Vital Signs Date/Time: Jan 19, 2016 Cardiac Monitoring Heart Rate 80 bpm Weight 192.5 lbs Height 63 in BMI 34.10 Index Blood Pressure Diastolic 84 mmHg Blood Pressure Systolic 128 mmHg Results No Known Results Summary Purpose eClinicalWorks Submission
[2016-09-30] MEDS ORDERED: NS IV 1000 ML 1,000 ML IV SCH (12:15)
[2016-09-30] MEDS ORDERED: ONDANSETRON 4 MG/2 ML (SDV) Z0FRAN IVP ONE (12:15)
[2016-09-30] MEDS ORDERED: DICYCLOMINE 10 MG/ML (BENTYL) 2 ML AMP IM PRN (12:15)
--- NOTE | 2016-09-30 12:17 | ED GI ---
General Chief Complaint: Abdominal/GI Problems Stated Complaint: BOWEL TROUBLE Nursing Triage Note: Pt c/o abd pain, and n/v/d for several months. Pt reports she was last seen on 09/19 and given prescription for levsin and reglan. Pt reports since starting those medications she has not had control over her bowels and has been incontinent on several occasions. Sepsis Screen: No Definite Risk Source of Information: Patient Exam Limitations: No Limitations History of Present Illness Time Seen By Provider: 12:14 Initial Comments To ER with reports of nausea vomiting and diarrhea for "months". She states that she's had incontinence of bowel twice within the past 48 hours. She has not had any urinary incontinence. She states the bowel movements are only liquid, unusual in appearance and odor, no obvious blood or mucus. Diffuse abdominal cramping. She also has nausea and vomiting. No fevers or chills. She has been seen by primary care for this and was started on Reglan about 2 weeks ago. She states this helped for about 2 days but then symptoms returned. Timing/Duration: Constant Severity/Quality: Cramping Radiation: No Radiation Associated Symptoms: No Back Pain, No Chest Pain, No Diaphoresis, No Fever/ Chills, Nausea/Vomiting Allergies and Home Medications Allergies Coded Allergies: Sulfa (Sulfonamide Antibiotics) (Verified Allergy, Unknown, RASH, 06/10/08) potassium (Verified Allergy, Unknown, SWELLING, 06/10/08) Uncoded Allergies: ENVIROMENTAL ALLERGIES (Allergy, Mild, 08/20/08) Home Medications Chlorzoxazone 500 Mg Tablet, 500 MG PO BID, (Reported) Cyclobenzaprine HCl 10 Mg Tablet, 10 MG PO Q8H PRN for SPASMS, #14 Ref 0 Prescribed by: CLARITA BEY on 03/03/161948 Glipizide 5 Mg Tablet, 5 MG PO DAILY, (Reported) Hydrochlorothiazide 25 Mg Tablet, 25 MG PO DAILY, (Reported) Hydrocodone/Acetaminophen 1 Each Tablet, 1 TAB PO QID PRN for PAIN, (Reported) Metoprolol Tartrate 50 Mg Tablet, 50 MG PO BID, (Reported) Naproxen 500 Mg Tablet, 500 MG PO BID PRN for PAIN, #20 Ref 0 Prescribed by: CLARITA BEY on 03/03/161948 Pantoprazole Sodium 40 Mg Tablet.dr, 40 MG PO BID, (Reported) Prednisone 20 Mg Tab, 40 MG PO DAILY, #10 Ref 0 Prescribed by: CLARITA BEY on 03/03/161948 Quetiapine Fumarate 100 Mg Tablet, 100 MG PO DAILY, (Reported) Quetiapine Fumarate 100 Mg Tablet, 200 MG PO HS, (Reported) TAKES 2 (100 MG) TABLETS Vortioxetine Hydrobromide 20 Mg Tablet, 20 MG PO HS, (Reported) LAST FILLED 11/17/15 #30 Review of Systems Constitutional: see HPI EENTM: No Symptoms Reported Respiratory: No Symptoms Reported Cardiovascular: No Symptoms Reported Gastrointestinal: See HPI, Abdominal Pain, Diarrhea, Nausea, Vomiting Genitourinary: No Symptoms Reported, Denies Drainage, Denies Frequency, Denies Flank Pain, Denies Hematuria Musculoskeletal: no symptoms reported Skin: no symptoms reported Psychiatric/Neurological: No Symptoms Reported Endocrine: No Symptoms Reported Hematologic/Lymphatic: No Symptoms Reported Past Flevvqa-Dtyqom-Telkud Hx Patient Social History Alcohol Use: Denies Use Recreational Drug Use: No Type Used: Cigarettes Recent Foreign Travel: No Contact w/Someone Who Travel: No Recent Infectious Disease Expo: No Recent Hopitalizations: No Immunizations Up To Date Tetanus Booster (TDap): Less than 5yrs Seasonal Allergies Seasonal Allergies: No Surgeries HX Surgeries: Yes (LEFT URETER REPAIR; KNEE SCOPE) Surgeries: Appendectomy, Bladder Surgery, Hysterectomy, Oophorectomy, Orthopedic, Renal Respiratory Hx Respiratory Disorders: Yes Respiratory Disorders: Chronic Bronchitis Cardiovascular Hx Cardiac Disorders: Yes ("OVERACTIVE HEART" HAS HAD TILT STUDY DONE-) Cardiac Disorders: Hypertension Neurological Hx Neurological Disorders: Yes Neurological Disorders: Neuropathy Reproductive System Hx Reproductive Disorders: Yes Sexually Transmitted Disease: No HIV/AIDS: No Female Reproductive Disorders: Denies DIRECTOR ECONOMIC History: Hysterectomy Genitourinary Hx Genitourinary Disorders: No Genitourinary Disorders: Bladder Infection Gastrointestinal Hx Gastrointestinal Disorders: Yes (ENLARGED LIVER) Gastrointestinal Disorders: Gastroesophageal Reflux Musculoskeletal Hx Musculoskeletal Disorders: Yes (CHRONIC KNEE PAIN ) Musculoskeletal Disorders: Arthritis, Fibromyalgia, Chronic Back Pain Endocrine Hx Endocrine Disorders: No ("diabetic but doesn't take medicine for it") HEENT HX ENT Disorders: No Hearing Impairment: Denies Cancer Hx Cancer: No Psychosocial Hx Psychiatric Problems: Yes Behavioral Health Disorders: Sleep Difficulties, Anxiety, Suicide Attempts, Depression Integumentary HX Skin/Integumentary Disorder: No Blood Transfusions Hx Blood Disorders: No Adverse Reaction to a Blood Tr: No Family Medical History Significant Family History: No Pertinent Family Hx Family Medial History: Cardiovascular disease 19 FATHER 19 MOTHER Diabetes mellitus 19 FATHER 19 MOTHER Hypertension 19 FATHER 19 MOTHER Myocardial infarction 19 MOTHER, Onset:50's - 60 Physical Exam Vital Signs VS - Last 72 Hours, by Label 09/30/16 09/30/16 11:56 12:28 Temp 97.6 97.6 Pulse 74 Resp 18 B/P (MAP) 146/113 Pulse Ox 96 O2 Delivery Room Air Capillary Refill : Less Than 3 Seconds General Appearance: WD/WN, no apparent distress HEENT: PERRL/EOMI, normal ENT inspection Neck: non-tender, full range of motion Respiratory: no respiratory distress, no accessory muscle use Gastrointestinal: normal bowel sounds, non tender, soft, No abnormal bowel sounds, No distended, No guarding, No rebound, No tenderness Extremities: normal range of motion, non-tender Neurologic/Psychiatric: alert, normal mood/affect, oriented x 3 Skin: normal color, warm/dry Progress/Results/Core Measures Results/Orders Lab Results Laboratory Tests Test 09/30/16 12:25 09/30/16 12:46 Range/Units Urine Color YELLOW Urine Clarity SLIGHTLY CLOUDY Urine pH 6.5 5-9 Urine Specific [place] 1.020 1.016-1.022 Urine Protein 2+ H NEGATIVE Urine Glucose (UA) NEGATIVE NEGATIVE Urine Ketones 2+ H NEGATIVE Urine Nitrite NEGATIVE NEGATIVE Urine Bilirubin 1+ H NEGATIVE Urine Urobilinogen 4 H NORMAL MG/DL Urine Leukocyte Esterase 1+ H NEGATIVE Urine RBC (Auto) 1+ H NEGATIVE Urine RBC NONE /HPF Urine WBC 5-10 H /HPF Urine Renal Epithelial Cells NONE /HPF Urine Crystals NONE /LPF Urine Bacteria FEW H /HPF Urine Casts NONE /LPF Urine Mucus LARGE H /LPF Urine Culture Indicated YES White Blood Count 12.1 H 4.3-11.0 10^3/uL Red Blood Count 4.37 4.35-5.85 10^6/uL Hemoglobin 13.7 11.5-16.0 G/DL Hematocrit 40 35-52 % Mean Corpuscular Volume 92 80-99 FL Mean Corpuscular Hemoglobin 31 25-34 PG Mean Corpuscular Hemoglobin Concent 34 32-36 G/DL Red Cell Distribution Width 12.8 10.0-14.5 % Platelet Count 298 130-400 10^3/uL Mean Platelet Volume 10.1 7.4-10.4 FL Neutrophils (%) (Auto) 69 42-75 % Lymphocytes (%) (Auto) 23 12-44 % Monocytes (%) (Auto) 6 0-12 % Eosinophils (%) (Auto) 1 0-10 % Basophils (%) (Auto) 0 0-10 % Neutrophils # (Auto) 8.3 H 1.8-7.8 X 10^3 Lymphocytes # (Auto) 2.8 1.0-4.0 X 10^3 Monocytes # (Auto) 0.7 0.0-1.0 X 10^3 Eosinophils # (Auto) 0.1 0.0-0.3 10^3/uL Basophils # (Auto) 0.1 0.0-0.1 10^3/uL Erythrocyte Sedimentation Rate 13 0-20 MM/HR Sodium Level 143 135-145 MMOL/L Potassium Level 3.9 3.6-5.0 MMOL/L Chloride Level 110 H 98-107 MMOL/L Carbon Dioxide Level 20 L 21-32 MMOL/L Anion Gap 13 5-14 MMOL/L Blood Urea Nitrogen 8 7-18 MG/DL Creatinine 0.58 L 0.60-1.30 MG/DL Estimat Glomerular Filtration Rate > 60 BUN/Creatinine Ratio 14 Glucose Level 111 H 70-105 MG/DL Calcium Level 9.4 8.5-10.1 MG/DL Total Bilirubin 0.6 0.1-1.0 MG/DL Aspartate Amino Transf (AST/SGOT) 28 5-34 U/L Alanine Aminotransferase (ALT/SGPT) 38 0-55 U/L Alkaline Phosphatase 70 40-136 U/L Total Protein 6.9 6.4-8.2 GM/DL Albumin 4.2 3.2-4.5 GM/DL My Orders Orders - TYLER SIMMS APRN Cbc With Automated Diff (09/30/16 12:04) Comprehensive Metabolic Panel (09/30/16 12:04) Ua Culture If Indicated (09/30/16 12:04) Saline Lock/Iv-Start (09/30/16 12:04) Erythrocyte Sedimentation Rate (09/30/16 12:12) Ondansetron Injection (Zofran Injectio (09/30/16 12:15) Ns Iv 1000 Ml (Sodium Chloride 0.9%) (09/30/16 12:15) Dicyclomine Injection (Bentyl Injection) (09/30/16 12:15) Acute Abd Series (09/30/16 12:14) C Difficile Ag + Toxin A/B. (09/30/16 12:29) Stool Culture (09/30/16 12:29) Urine Culture (09/30/16 12:25) Medications Given in ED Current Medications Medications Dose Ordered Sig/Lana Route Start Time Stop Time Status Last Admin Dose Admin Dicyclomine HCl 20 mg ONCE PRN IM 09/30/16 12:15 09/30/16 12:28 20 MG Ondansetron HCl 8 mg ONCE ONCE IVP 09/30/16 12:15 09/30/16 12:16 DC 09/30/16 12:50 8 MG Vital Signs/I&O Vital Sign - Last 12Hours 09/30/16 09/30/16 11:56 12:28 Temp 97.6 97.6 Pulse 74 Resp 18 B/P (MAP) 146/113 Pulse Ox 96 O2 Delivery Room Air Blood Pressure Mean: 124 Departure Communication Progress Notes She did have an MRI lumbar spine 2 years ago which showed no canal stenosis with a normal-appearing, cauda equina/conus medullaris Impression Impression: Primary Impression: Urinary tract infection Additional Impression: Nausea vomiting and diarrhea Disposition: 01 HOME, SELF-CARE Condition: Stable Departure-Patient Inst. Decision time for Depature: 13:43 Referrals: KIMBERLY MONTGOMERY DO (PCP) Primary Care Physician CATERINA PACE APRN (Family) Primary Care Physician Patient Instructions: Urinary Tract Infection, Adult (DC) Add. Discharge Instructions: 1. Follow-up with her regular doctor 2. Antibiotics as directed 3. We will call you if your stool cultures indicate need for antibiotic All discharge instructions reviewed with patient and/or family. Voiced understanding. Scripts Ondansetron (Zofran Odt) 8 Mg Tab.rapdis 8 MG PO Q6H Y for NAUSEA/VOMITING-1ST LINE, #10 TAB Prov: TYLER SIMMS APRN 09/30/16 Cefuroxime Axetil (Cefuroxime) 250 Mg Tablet 250 MG PO BID, #10 TAB Prov: TYLER SIMMS APRN 09/30/16 TYLER SIMMS APRN Sep 30, 2016 12:17
[2016-09-30 12:45] LABS: KETONES,URINE 2+ (NEGATIVE); LEUKOCYTE ESTERASE ,URINE 1+ (NEGATIVE); NITRITE,URINE NEGATIVE (NEGATIVE); PH,URINE 6.5 (5-9); PROTEIN,URINE 2+ (NEGATIVE); UROBILINOGEN,URINE 4 MG/DL (NORMAL)
[2016-09-30 12:57] LABS: BASOPHILS # (AUTO) 0.1 10^3/uL (0.0-0.1); BASOPHILS % (AUTO) 0 % (0-10); EOSINOPHILS # (AUTO) 0.1 10^3/uL (0.0-0.3); EOSINOPHILS % (AUTO) 1 % (0-10); LYMPHOCYTES # (AUTO) 2.8 X 10^3 (1.0-4.0); LYMPHOCYTES % (AUTO) 23 % (12-44); MEAN CORPUSCULAR HEMOGLOBIN 31 PG (25-34); MEAN CORPUSCULAR HGB CONC 34 G/DL (32-36); MEAN CORPUSCULAR VOLUME 92 FL (80-99); MEAN PLATELET VOLUME 10.1 FL (7.4-10.4); MONOCYTES # (AUTO) 0.7 X 10^3 (0.0-1.0); MONOCYTES % (AUTO) 6 % (0-12); NEUTROPHILS # (AUTO) 8.3 X 10^3 (1.8-7.8); NEUTROPHILS % (AUTO) 69 % (42-75); PLATELET COUNT 298 10^3/uL (130-400); RED BLOOD COUNT 4.37 10^6/uL (4.35-5.85); RED CELL DISTRIBUTION WIDTH 12.8 % (10.0-14.5); WHITE BLOOD COUNT 12.1 10^3/uL (4.3-11.0)
[2016-09-30 13:05] LABS: BILIRUBIN,URINE 1+ (NEGATIVE)
[2016-09-30 13:16] LABS: ALANINE AMINOTRANSFERASE 38 U/L (0-55); ALBUMIN 4.2 GM/DL (3.2-4.5); ANION GAP 13 MMOL/L (5-14); ASPARTATE AMINO TRANSFERASE 28 U/L (5-34); BILIRUBIN,TOTAL 0.6 MG/DL (0.1-1.0); BLOOD UREA NITROGEN 8 MG/DL (7-18); BUN/CREATININE RATIO 14; CALCIUM 9.4 MG/DL (8.5-10.1); CARBON DIOXIDE 20 MMOL/L (21-32); CHLORIDE 110 MMOL/L (98-107); CREATININE SERUM 0.58 MG/DL (0.60-1.30); GFR ESTIMATED > 60; GLUCOSE 111 MG/DL (70-105); POTASSIUM 3.9 MMOL/L (3.6-5.0); SODIUM 143 MMOL/L (135-145); TOTAL PROTEIN 6.9 GM/DL (6.4-8.2)
[2016-09-30 13:32] LABS: ERYTHROCYTE SEDIMENTATION RATE 13 MM/HR (0-20)
--- NOTE | 2016-09-30 13:38 | Diagnostic Imaging Report ---
EXAMINATION: Acute abdominal series. INDICATION: Nausea, vomiting, and diarrhea. FINDINGS: The PA chest demonstrates clear lungs with a normal sized heart. No effusion or pneumothorax. There is no pneumoperitoneum or evidence of bowel obstruction demonstrated on the abdominal views. No significant air/fluid levels. No suspicious calcification. IMPRESSION: Unremarkable exam. Dictated by: Dictated on workstation # [id number]
[2016-09-30] MEDS ORDERED: CEFU250T80 PO (13:45)
[2016-09-30] MEDS ORDERED: ONDA8TAB9 PO (13:45)
[2016-09-30 13:47] VITALS: BP 141/76
== END 2016-09-30 13:57 | disposition home or self-care (01) ==
LOC: EDUNIT# 11:23 → ER 11:25
DX: N39.0 Urinary tract infection, site not specified (principal); R11.2 Nausea with vomiting, unspecified; R19.7 Diarrhea, unspecified; R15.9 Full incontinence of feces; I10 Essential (primary) hypertension; E11.9 Type 2 diabetes mellitus without complications; G62.9 Polyneuropathy, unspecified; K21.9 Gastro-esophageal reflux disease without esophagitis; M19.90 Unspecified osteoarthritis, unspecified site; M79.7 Fibromyalgia; M54.9 Dorsalgia, unspecified; F41.9 Anxiety disorder, unspecified; F32.9 Major depressive disorder, single episode, unspecified
CPT/HCPCS: 36415; 74022; 80053; 81000; 85025; 85652; 87045; 87046; 87088; 87324; 87449; 96361; 96372; 96374

== ENCOUNTER 2016-11-12 05:39 | Outpatient (CLI) | payer OTHER ==
[~2016-11-12] VITALS: Ht 157.5 cm; Wt 77.1 kg
[~2016-11-12 05:39] MED LIST changes: +CEFU250T80 PO; +ONDA8TAB9 PO
[2016-11-12] MEDS ORDERED: RANI-515 PO (13:59)
[2016-11-12] MEDS ORDERED: BUSP10TA95 PO (13:59)
== END 2016-11-12 14:02 ==
LOC: PREOP 05:39
PROVIDERS: ATTEND Surgery
DX: Z01.818 Encounter for other preprocedural examination (principal); R10.32 Left lower quadrant pain; R19.7 Diarrhea, unspecified; R63.4 Abnormal weight loss

== ENCOUNTER 2016-11-16 12:42 | Day surgery (SDC) | payer OTHER ==
[~2016-11-16] VITALS: Ht 157.5 cm; Wt 82.6 kg
[~2016-11-16 12:42] MED LIST changes: +RANI-515 PO
[2016-11-16 12:50] VITALS: BP 137/76
[2016-11-16] MEDS ORDERED: LACTATED RINGERS 1,000 ML IV ONE (12:56)
--- NOTE | 2016-11-16 13:10 | Progress Note-Pre Operative ---
Pre-Operative Progress Note H&P Reviewed The H&P was reviewed, patient examined and no changes noted. Date Seen by Provider: Nov 16, 2016 Time Seen by Provider: 13:09 Date H&P Reviewed: Nov 16, 2016 Time H&P Reviewed: 13:09 Pre-Operative Diagnosis: llq abdominal pain, weight loss, diarrhea CELSO SÁNCHEZ DO Nov 16, 2016 1:10 pm
[2016-11-16] MEDS ORDERED: LACTATED RINGERS 1,000 ML IV SCH (13:15)
[2016-11-16] MEDS ORDERED: BENZOCAINE 20% SPRAY (HURRICANE) 60 ML CAN MT ONE (13:15)
[2016-11-16] MEDS ORDERED: PROPOFOL INJECTION 50 ML IV ONE (14:01)
[2016-11-16] MEDS ORDERED: MIDAZOLAM 5 MG/5 ML (VERSED) VIAL ONE (14:01)
[2016-11-16] MEDS ORDERED: HURRICAINE EXT TUBE (BENZOCAINE) XX ONE (14:30)
[2016-11-16] MEDS ORDERED: proPOfol 200 MG/20 ML (DIPRIVAN) VIAL IV ONE (14:38)
--- NOTE | 2016-11-16 14:50 | Progress Note-Post Operative ---
Post-Operative Progess Note Surgeon (s)/Chefs (s) Surgeon CELSO SÁNCHEZ DO Chefs: na Pre-Operative Diagnosis llq abdominal pain, weight loss, diarrhea Post-Operative Diagnosis gastritis, normal colon Procedure & Operative Findings Date of Procedure 11/16/16 Procedure Performed/Findings egd c biopsy, colonoscopy with random cold biopsies Anesthesia Type per observer gravity prospecting Estimated Blood Loss Estimated blood loss (mL): none Specimens/Packing Specimens Removed antrum, random colon CELSO SÁNCHEZ DO Nov 16, 2016 2:50 pm
[2016-11-16] MEDS ORDERED: SUCR1TAB36 PO (14:51)
--- NOTE | 2016-11-16 14:52 | Discharge Inst-Simple/Standard ---
Discharge Inst-Standard Discharge Medications New, Converted or Re-Newed RX: Transmitted to Pharmacy Patient Instructions/Follow Up Plan of Care/Instructions/FU: 3 weeks Tara Activity as Tolerated: Yes Discharge Diet: Regular Diet CELSO SÁNCHEZ DO Nov 16, 2016 2:52 pm
[2016-11-16 15:15] VITALS: BP 124/74
[2016-11-16] MEDS ORDERED: HURRICAINE EXT TUBE (BENZOCAINE) ONE (15:21)
[2016-11-16 15:45] VITALS: BP 132/89
[2016-11-16 16:00] VITALS: BP 132/89
--- NOTE | 2016-11-16 19:37 | OPERATIVE REPORT ---
DATE OF SERVICE: 11/16/2016 PREOPERATIVE DIAGNOSIS: Left lower quadrant abdominal pain, weight loss, diarrhea. POSTOPERATIVE DIAGNOSIS: Gastritis, normal colon. PROCEDURE: EGD with biopsy, colonoscopy with random colon biopsies. ANESTHESIA: Per TWISTER HAND. SURGEON: CELSO SÁNCHEZ DO ESTIMATED BLOOD LOSS: None. COMPLICATIONS: None. Specimens of the antrum and random colon. INDICATIONS: The patient is a 41-year-old female with history of left lower quadrant abdominal pain. She has had significant weight loss and has had some diarrhea. She understands the risks and benefits of procedures and wished to proceed with procedures. Consent was signed on the chart. DESCRIPTION OF PROCEDURE: The patient was taken to the endoscopy suite, placed in left lateral recumbent position. Timeout was performed. Scope was inserted in the mouth, down the esophagus, stomach and into the duodenum. There are no polyps, masses or ulcerations within the duodenum. The scope was continued to be slowly retracted back until it was further insufflated. Erythematous changes consistent with gastritis were present. Biopsy of the antrum was obtained. The scope was retroflexed noting no other pathology. Scope was returned to its normal position, slowly withdrawn until in the distal esophagus. There are no polyps, masses, ulcerations, or erythematous changes. Scope was slowly retracted back until removed, noting no other pathology. Digital rectal exam was performed and there were no palpable polyps, mass or ulcerations. The scope was inserted in the rectum and advanced all the way to the cecum with minimal difficulty. Prep was adequate. Scope was then slowly retracted back. There were no polyps, masses or ulcerations in the cecum, ascending, transverse, descending and sigmoid colon. A couple random cold biopsies were obtained on the way out. Once in the rectum, scope was retroflexed noting no other pathology. Scope was returned to its normal position, slowly withdrawn until completely removed. The patient tolerated procedure well without any complications. She was taken to the recovery room in stable condition. RECOMMENDATIONS: The patient will be started on Carafate 1 gram four times a day. She will need a repeat colonoscopy at age 51 per routine screening guidelines. If she has family history, it should be every 5 years. If she has any problems prior to that, she should be reevaluated at that time. I will have her follow up in the office in approximately two to three weeks to see how she is doing with current regimen and see how her symptoms are doing and see what pathology demonstrates. Job ID: [id number] DocumentID: [id number] Dictated Date: 11/16/2016 14:56:56 Filament Shaper Date: 11/16/2016 19:35:52 Dictated By: CELSO SÁNCHEZ DO
== END 2016-11-16 16:00 | disposition home or self-care (01) ==
LOC: ENDO 12:42
PROVIDERS: ATTEND Surgery
DX: R19.7 Diarrhea, unspecified (principal); K29.70 Gastritis, unspecified, without bleeding; R10.32 Left lower quadrant pain; R63.4 Abnormal weight loss; I10 Essential (primary) hypertension; E11.9 Type 2 diabetes mellitus without complications; F41.9 Anxiety disorder, unspecified; F32.9 Major depressive disorder, single episode, unspecified; I08.1 Rheumatic disorders of both mitral and tricuspid valves; E66.9 Obesity, unspecified; Z68.33 Body mass index [BMI] 33.0-33.9, adult; Z79.899 Other long term (current) drug therapy

== ENCOUNTER 2016-11-19 22:23 | Emergency (ER) | payer OTHER ==
[~2016-11-19] VITALS: Ht 157.5 cm; Wt 82.6 kg
[~2016-11-19 22:23] MED LIST changes: +SUCR1TAB36 PO
[2016-11-19] MEDS ORDERED: NS IV 1000 ML 1,000 ML IV ONE (23:29)
[2016-11-19] MEDS ORDERED: ONDANSETRON 4 MG/2 ML (SDV) Z0FRAN IVP ONE (23:30)
[2016-11-19] MEDS ORDERED: FAMOTIDINE 20MG/2ML IV (PEPCID) IVP ONE (23:30)
[2016-11-19] MEDS ORDERED: diphenhydrAMINE 50 MG/ML INJ (BENADRYL) IVP ONE (23:30)
[2016-11-20] MEDS ORDERED: FAMOTIDINE 20 MG (PEPCID) TABLET PO ONE (00:30)
[2016-11-20] MEDS ORDERED: diphenhydrAMINE 50 MG/ML INJ (BENADRYL) IM ONE (00:30)
[2016-11-20] MEDS ORDERED: ONDANSETRON 4 MG (ZOFRAN) ORAL DISSOLVE TAB PO ONE (00:30)
[2016-11-20 00:42] LABS: BASOPHILS # (AUTO) 0.1 10^3/uL (0.0-0.1); BASOPHILS % (AUTO) 0 % (0-10); EOSINOPHILS # (AUTO) 0.3 10^3/uL (0.0-0.3); EOSINOPHILS % (AUTO) 2 % (0-10); LYMPHOCYTES # (AUTO) 3.2 X 10^3 (1.0-4.0); LYMPHOCYTES % (AUTO) 25 % (12-44); MEAN CORPUSCULAR HEMOGLOBIN 32 PG (25-34); MEAN CORPUSCULAR HGB CONC 34 G/DL (32-36); MEAN CORPUSCULAR VOLUME 94 FL (80-99); MEAN PLATELET VOLUME 10.4 FL (7.4-10.4); MONOCYTES # (AUTO) 1.1 X 10^3 (0.0-1.0); MONOCYTES % (AUTO) 8 % (0-12); NEUTROPHILS # (AUTO) 8.2 X 10^3 (1.8-7.8); NEUTROPHILS % (AUTO) 64 % (42-75); PLATELET COUNT 291 10^3/uL (130-400); RED BLOOD COUNT 4.48 10^6/uL (4.35-5.85); RED CELL DISTRIBUTION WIDTH 12.3 % (10.0-14.5); WHITE BLOOD COUNT 12.8 10^3/uL (4.3-11.0)
[2016-11-20 01:02] LABS: ALANINE AMINOTRANSFERASE 27 U/L (0-55); ALBUMIN 4.7 GM/DL (3.2-4.5); ANION GAP 13 MMOL/L (5-14); ASPARTATE AMINO TRANSFERASE 29 U/L (5-34); BILIRUBIN,TOTAL 0.6 MG/DL (0.1-1.0); BLOOD UREA NITROGEN 7 MG/DL (7-18); BUN/CREATININE RATIO 11; CALCIUM 9.9 MG/DL (8.5-10.1); CARBON DIOXIDE 25 MMOL/L (21-32); CHLORIDE 105 MMOL/L (98-107); CREATININE SERUM 0.61 MG/DL (0.60-1.30); GFR ESTIMATED > 60; GLUCOSE 87 MG/DL (70-105); LIPASE 11 U/L (8-78); MAGNESIUM 1.8 MG/DL (1.8-2.4); POTASSIUM 3.4 MMOL/L (3.6-5.0); SODIUM 143 MMOL/L (135-145); TOTAL PROTEIN 7.3 GM/DL (6.4-8.2)
[2016-11-20 01:32] LABS: KETONES,URINE 1+ (NEGATIVE); LEUKOCYTE ESTERASE ,URINE 1+ (NEGATIVE); NITRITE,URINE NEGATIVE (NEGATIVE); PH,URINE 7 (5-9); PROTEIN,URINE 2+ (NEGATIVE); UROBILINOGEN,URINE 1 MG/DL (NORMAL)
[2016-11-20 01:37] LABS: BILIRUBIN,URINE 1+ (NEGATIVE)
[2016-11-20 01:39] LABS: WBC,URINE 0-2 /HPF
[2016-11-20] MEDS ORDERED: RX-ONDANSETRON 4 MG ODT (ZOFRAN) PPK #4 SL STA (02:16)
[2016-11-20] MEDS ORDERED: FAMO-119 PO (02:19)
--- NOTE | 2016-11-20 02:19 | ED GI ---
General Chief Complaint: Abdominal/GI Problems Stated Complaint: ALLERGIC REACTION Nursing Triage Note: C/O HEADACHE,N/V Sepsis Screen: No Definite Risk Source of Information: Patient Exam Limitations: No Limitations History of Present Illness Time Seen By Provider: 23:30 Initial Comments This 41-year-old woman presents to emergency room with complaints of headache, nausea, vomiting and itching. She correlates the symptoms with use of care today. She had a colonoscopy and EGD performed on November 16. She was found to have gastritis and a normal colon at that time. Allergies and Home Medications Allergies Coded Allergies: sucralfate (Verified Allergy, Mild, Vomiting and itching, 11/25/16) Sulfa (Sulfonamide Antibiotics) (Verified Allergy, Unknown, RASH, 11/25/16) potassium (Verified Allergy, Unknown, SWELLING, 11/25/16) Uncoded Allergies: ENVIROMENTAL ALLERGIES (Allergy, Mild, 08/20/08) Home Medications Buspirone HCl 10 Mg Tablet, 10 MG PO BID, (Reported) Dicyclomine HCl 10 Mg Capsule, 10 MG PO ACHS, #40 Prescribed by: TYLER SIMMS on 11/25/16 1748 Famotidine 20 Mg Tablet, 20 MG PO BID, #60 Prescribed by: SAMMI MCFADDEN on 11/20/16 0219 Hydrocodone/Acetaminophen 1 Each Tablet, 1 TAB PO QID PRN for PAIN, (Reported) Metoprolol Tartrate 50 Mg Tablet, 50 MG PO BID, (Reported) Ondansetron 4 Mg Tab.rapdis, 4 MG SL Q4H PRN for NAUSEA/VOMITING-1ST LINE, #10 Prescribed by: SAMMI MCFADDEN on 11/20/16 0222 Pantoprazole Sodium 40 Mg Tablet.dr, 40 MG PO DAILY, (Reported) Quetiapine Fumarate 100 Mg Tablet, 100 MG PO DAILY, (Reported) Quetiapine Fumarate 100 Mg Tablet, 200 MG PO HS, (Reported) TAKES 2 (100 MG) TABLETS Sucralfate 1 Gm Tablet, 1 GM PO QID, #120 Prescribed by: CELSO SÁNCHEZ on 11/16/16 1451 Vortioxetine Hydrobromide 20 Mg Tablet, 20 MG PO HS, (Reported) Review of Systems Constitutional: no symptoms reported EENTM: No Symptoms Reported Respiratory: No Symptoms Reported Cardiovascular: No Symptoms Reported Gastrointestinal: See HPI Genitourinary: No Symptoms Reported Musculoskeletal: no symptoms reported Psychiatric/Neurological: No Symptoms Reported Endocrine: No Symptoms Reported Past Lqfewlt-Fedyof-Odiufd Hx Patient Social History Alcohol Use: Denies Use Recreational Drug Use: No Smoking Status: Current Everyday Smoker Type Used: Cigarettes Recent Foreign Travel: No Contact w/Someone Who Travel: No Recent Infectious Disease Expo: No Recent Hopitalizations: No Immunizations Up To Date Tetanus Booster (TDap): Less than 5yrs Seasonal Allergies Seasonal Allergies: Yes Surgeries HX Surgeries: Yes (LEFT URETER REPAIR; KNEE SCOPE) Surgeries: Appendectomy, Bladder Surgery, Hysterectomy, Oophorectomy, Orthopedic, Tonsillectomy Respiratory Hx Respiratory Disorders: Yes Respiratory Disorders: Chronic Bronchitis Cardiovascular Hx Cardiac Disorders: Yes Cardiac Disorders: Hypertension, Syncope Neurological Hx Neurological Disorders: Yes Neurological Disorders: Neuropathy Reproductive System Hx Reproductive Disorders: No Sexually Transmitted Disease: No HIV/AIDS: No Female Reproductive Disorders: Denies TENTMAKER History: Hysterectomy Genitourinary Hx Genitourinary Disorders: No Genitourinary Disorders: Bladder Infection Gastrointestinal Hx Gastrointestinal Disorders: Yes (ENLARGED LIVER, gastritis) Gastrointestinal Disorders: Gastroesophageal Reflux, Chronic Diarrhea Musculoskeletal Hx Musculoskeletal Disorders: Yes Musculoskeletal Disorders: Arthritis, Fibromyalgia, Chronic Back Pain Endocrine Hx Endocrine Disorders: No ("diabetic but doesn't take medicine for it") HEENT HX ENT Disorders: No Hearing Impairment: Denies Cancer Hx Cancer: No Psychosocial Hx Psychiatric Problems: Yes Behavioral Health Disorders: Sleep Difficulties, Anxiety, Suicide Attempts, Bipolar, Depression Integumentary HX Skin/Integumentary Disorder: No Blood Transfusions Hx Blood Disorders: No Adverse Reaction to a Blood Tr: No Family Medical History Significant Family History: No Pertinent Family Hx Family Medial History: Cardiovascular disease 19 FATHER 19 MOTHER Diabetes mellitus 19 FATHER 19 MOTHER Hypertension 19 FATHER 19 MOTHER Myocardial infarction 19 MOTHER, Onset:50's - 60 Physical Exam Vital Signs Capillary Refill : Less Than 3 Seconds General Appearance: WD/WN, no apparent distress HEENT: PERRL/EOMI, normal ENT inspection, pharynx normal Neck: normal inspection Respiratory: lungs clear, normal breath sounds, no respiratory distress, no accessory muscle use Cardiovascular: regular rate, rhythm, no edema, no murmur Gastrointestinal: tenderness (Epigastric) Extremities: normal inspection, no pedal edema Neurologic/Psychiatric: linen attendant II-XII nml as tested, no motor/sensory deficits, alert, normal mood/affect, oriented x 3 Skin: normal color, warm/dry Progress/Results/Core Measures Results/Orders Lab Results Laboratory Tests Test 11/20/16 00:35 11/20/16 01:20 Range/Units White Blood Count 12.8 H 4.3-11.0 10^3/uL Red Blood Count 4.48 4.35-5.85 10^6/uL Hemoglobin 14.2 11.5-16.0 G/DL Hematocrit 42 35-52 % Mean Corpuscular Volume 94 80-99 FL Mean Corpuscular Hemoglobin 32 25-34 PG Mean Corpuscular Hemoglobin Concent 34 32-36 G/DL Red Cell Distribution Width 12.3 10.0-14.5 % Platelet Count 291 130-400 10^3/uL Mean Platelet Volume 10.4 7.4-10.4 FL Neutrophils (%) (Auto) 64 42-75 % Lymphocytes (%) (Auto) 25 12-44 % Monocytes (%) (Auto) 8 0-12 % Eosinophils (%) (Auto) 2 0-10 % Basophils (%) (Auto) 0 0-10 % Neutrophils # (Auto) 8.2 H 1.8-7.8 X 10^3 Lymphocytes # (Auto) 3.2 1.0-4.0 X 10^3 Monocytes # (Auto) 1.1 H 0.0-1.0 X 10^3 Eosinophils # (Auto) 0.3 0.0-0.3 10^3/uL Basophils # (Auto) 0.1 0.0-0.1 10^3/uL Sodium Level 143 135-145 MMOL/L Potassium Level 3.4 L 3.6-5.0 MMOL/L Chloride Level 105 98-107 MMOL/L Carbon Dioxide Level 25 21-32 MMOL/L Anion Gap 13 5-14 MMOL/L Blood Urea Nitrogen 7 7-18 MG/DL Creatinine 0.61 0.60-1.30 MG/DL Estimat Glomerular Filtration Rate > 60 BUN/Creatinine Ratio 11 Glucose Level 87 70-105 MG/DL Calcium Level 9.9 8.5-10.1 MG/DL Magnesium Level 1.8 1.8-2.4 MG/DL Total Bilirubin 0.6 0.1-1.0 MG/DL Aspartate Amino Transf (AST/SGOT) 29 5-34 U/L Alanine Aminotransferase (ALT/SGPT) 27 0-55 U/L Alkaline Phosphatase 66 40-136 U/L C-Reactive Protein High Sensitivity 0.15 0.00-0.50 MG/DL Total Protein 7.3 6.4-8.2 GM/DL Albumin 4.7 H 3.2-4.5 GM/DL Lipase 11 8-78 U/L Urine Color YELLOW Urine Clarity CLEAR Urine pH 7 5-9 Urine Specific [place] 1.015 L 1.016-1.022 Urine Protein 2+ H NEGATIVE Urine Glucose (UA) NEGATIVE NEGATIVE Urine Ketones 1+ H NEGATIVE Urine Nitrite NEGATIVE NEGATIVE Urine Bilirubin 1+ H NEGATIVE Urine Urobilinogen 1 NORMAL MG/DL Urine Leukocyte Esterase 1+ H NEGATIVE Urine RBC (Auto) 1+ H NEGATIVE Urine RBC 2-5 H /HPF Urine WBC 0-2 /HPF Urine Squamous Epithelial Cells 5-10 /HPF Urine Crystals NONE /LPF Urine Bacteria TRACE /HPF Urine Casts NONE /LPF Urine Mucus MODERATE H /LPF Urine Culture Indicated NO My Orders Orders - SAMMI ALFREDO MD Cbc With Automated Diff (11/19/16 23:29) Comprehensive Metabolic Panel (11/19/16 23:29) Lipase (11/19/16 23:29) Magnesium (11/19/16 23:29) Ua Culture If Indicated (11/19/16 23:29) Saline Lock/Iv-Start (11/19/16 23:29) Ns Iv 1000 Ml (Sodium Chloride 0.9%) (11/19/16 23:29) Diphenhydramine Injection (Benadryl Inje (11/19/16 23:30) Famotidine Injection (Pepcid Injection) (11/19/16 23:30) Ondansetron Injection (Zofran Injectio (11/19/16 23:30) Diphenhydramine Injection (Benadryl Inje (11/20/16 00:30) Ondansetron Oral Dissolve Tab (Zofran (11/20/16 00:30) Famotidine Tablet (Pepcid Tablet) (11/20/16 00:30) Hs C Reactive Protein (11/20/16 01:04) Rx-Ondansetron Po (Rx-Zofran Po) (11/20/16 02:16) Im/Sub-Q Injection Non-Ab Ed (11/19/16 ) Medications Given in ED Vital Signs/I&O Blood Pressure Mean: 100 Progress Note : Progress Note Patient was treated with Pepcid, Zofran, IV fluids, and Benadryl with some improvement. Symptoms could possibly be caused to allergy or adverse reaction to Carafate. Carafate was added to her allergy list. Departure Impression Impression: Primary Impression: Nausea and vomiting Qualified Codes: R11.2 - Nausea with vomiting, unspecified Additional Impression: Allergic reaction caused by a drug Qualified Codes: T78.40XA - Allergy, unspecified, initial encounter Disposition: HOME, SELF-CARE Condition: Improved Departure-Patient Inst. Decision time for Depature: 02:00 Referrals: KIMBERLY MONTGOMERY DO (PCP) Primary Care Physician CATERINA PACE APRN (Family) Primary Care Physician Patient Instructions: Nausea and Vomiting, Adult Add. Discharge Instructions: You may take Benadryl (diphenhydramine) up to 50 mg every 4 hours as needed for itching. Drink plenty of water. Discontinue Carafate (sucralfate). Add Pepcid ( famotidine) 20 mg twice daily as a replacement. Follow-up with Dr. Sánchez as soon as possible. Contact his office on Tuesday morning. Avoid the following: Eating large meals, eating close to bedtime, caffeine, carbonation, chocolate, citrus fruits and juices, tomato products, mints, alcohol, tobacco, NSAID medications such as ibuprofen or naproxen, spicy foods, fatty or greasy foods, or anything else you know irritates her stomach. All discharge instructions reviewed with patient and/or family. Voiced understanding. Scripts Ondansetron (Zofran Odt) 4 Mg Tab.rapdis 4 MG SL Q4H Y for NAUSEA/VOMITING-1ST LINE, #10 TAB Prov: SAMMI ALFREDO MD 11/20/16 Famotidine (Pepcid) 20 Mg Tablet 20 MG PO BID, #60 TAB Prov: SAMMI ALFREDO MD 11/20/16 SAMMI ALFREDO MD Nov 20, 2016 02:19
[2016-11-20] MEDS ORDERED: ONDA4TAB8 SL (02:22)
[2016-11-20 02:27] VITALS: BP 131/85
== END 2016-11-20 02:28 | disposition home or self-care (01) ==
LOC: EDUNIT# 22:23 → ER 22:24
DX: T50.905A Adverse effect of unspecified drugs, medicaments and biological substances, initial encounter (principal); R11.2 Nausea with vomiting, unspecified; I10 Essential (primary) hypertension; K21.9 Gastro-esophageal reflux disease without esophagitis; M19.90 Unspecified osteoarthritis, unspecified site; F41.9 Anxiety disorder, unspecified; F31.9 Bipolar disorder, unspecified; F17.210 Nicotine dependence, cigarettes, uncomplicated; Z82.49 Family history of ischemic heart disease and other diseases of the circulatory system; Z91.5 Personal history of self-harm; Z90.49 Acquired absence of other specified parts of digestive tract; Z90.710 Acquired absence of both cervix and uterus
CPT/HCPCS: 36415; 80053; 81000; 83690; 83735; 85025; 86141; 96372; 99284

== ENCOUNTER 2016-11-25 15:40 | Emergency (ER) | payer SELFPAY ==
[~2016-11-25] VITALS: Ht 157.5 cm; Wt 82.6 kg
[~2016-11-25 15:40] MED LIST changes: +FAMO-119 PO; +ONDA4TAB8 SL
[2016-11-25 16:51] LABS: BILIRUBIN,URINE NEGATIVE (NEGATIVE); KETONES,URINE 1+ (NEGATIVE); LEUKOCYTE ESTERASE ,URINE NEGATIVE (NEGATIVE); NITRITE,URINE NEGATIVE (NEGATIVE); PH,URINE 8 (5-9); PROTEIN,URINE NEGATIVE (NEGATIVE); UROBILINOGEN,URINE NORMAL (NORMAL)
[2016-11-25 16:58] LABS: SQUAMOUS EPITHELIAL CELL,UR 25-50 /HPF
[2016-11-25] MEDS ORDERED: HYOSCYAMINE 0.125 MG (LEVSIN) TAB PO ONE (17:00)
[2016-11-25] MEDS ORDERED: ONDANSETRON 4 MG (ZOFRAN) ORAL DISSOLVE TAB PO ONE (17:00)
--- NOTE | 2016-11-25 17:09 | ED Abdominal Pain ---
General Chief Complaint: Abdominal/GI Problems Stated Complaint: ABD PAIN Nursing Triage Note: States she has been having suprapubic abd pain since this am, worse through day. States she has IBS and was jsut dx with limes disease. Diarrhea and vomiting today. Called family and was told to come to ed Sepsis Screen: No Definite Risk Source of Information: Patient Exam Limitations: No Limitations History of Present Illness Time Seen By Provider: 17:07 Initial Comments To ER with reports of suprapubic and left lower quadrant abdominal pain since this morning. She's also had diarrhea and vomiting. She has a history of ear trouble bowel syndrome in this pain is typical for that and usually is relieved with Bentyl but she is not currently on Bentyl. She states that she was recently diagnosed with Lyme disease and is currently on antibiotics for that. No fevers or chills. Timing/Duration: 4-6 Hours Severity/Quality: Moderate Location: [facility] Radiation: No Radiation Allergies and Home Medications Allergies Coded Allergies: sucralfate (Verified Allergy, Mild, Vomiting and itching, 11/25/16) Sulfa (Sulfonamide Antibiotics) (Verified Allergy, Unknown, RASH, 11/25/16) potassium (Verified Allergy, Unknown, SWELLING, 11/25/16) Uncoded Allergies: ENVIROMENTAL ALLERGIES (Allergy, Mild, 08/20/08) Home Medications Buspirone HCl 10 Mg Tablet, 10 MG PO BID, (Reported) Famotidine 20 Mg Tablet, 20 MG PO BID, #60 Prescribed by: SAMMI MCFADDEN on 11/20/16 0219 Hydrocodone/Acetaminophen 1 Each Tablet, 1 TAB PO QID PRN for PAIN, (Reported) Metoprolol Tartrate 50 Mg Tablet, 50 MG PO BID, (Reported) Ondansetron 4 Mg Tab.rapdis, 4 MG SL Q4H PRN for NAUSEA/VOMITING-1ST LINE, #10 Prescribed by: SAMMI MCFADDEN on 11/20/16 0222 Pantoprazole Sodium 40 Mg Tablet.dr, 40 MG PO DAILY, (Reported) Quetiapine Fumarate 100 Mg Tablet, 100 MG PO DAILY, (Reported) Quetiapine Fumarate 100 Mg Tablet, 200 MG PO HS, (Reported) TAKES 2 (100 MG) TABLETS Sucralfate 1 Gm Tablet, 1 GM PO QID, #120 Prescribed by: CELSO SÁNCHEZ on 11/16/16 1451 Vortioxetine Hydrobromide 20 Mg Tablet, 20 MG PO HS, (Reported) Review of Systems Constitutional: see HPI EENTM: No Symptoms Reported Respiratory: No Symptoms Reported Cardiovascular: No Symptoms Reported Gastrointestinal: See HPI, Abdominal Pain, Diarrhea Genitourinary: No Symptoms Reported Musculoskeletal: no symptoms reported Skin: no symptoms reported Psychiatric/Neurological: No Symptoms Reported Past Ccheqvi-Egxvut-Vthuiq Hx Patient Social History Alcohol Use: Denies Use Recreational Drug Use: No Smoking Status: Current Everyday Smoker Type Used: Cigarettes Recent Foreign Travel: No Contact w/Someone Who Travel: No Recent Infectious Disease Expo: No Recent Hopitalizations: No Physical Abuse: No Sexual Abuse: No Mistreated: No Fear: No Immunizations Up To Date Tetanus Booster (TDap): Less than 5yrs Seasonal Allergies Seasonal Allergies: No Surgeries History of Surgeries: Yes Surgeries: Appendectomy, Hysterectomy, Orthopedic, Renal Respiratory History of Respiratory Disorde: No Respiratory Disorders: Chronic Bronchitis Currently Using CPAP: No Currently Using BIPAP: No Cardiovascular History of Cardiac Disorders: Yes Cardiac Disorders: Hypertension, Syncope Neurological History of Neurological Disord: No Neurological Disorders: Neuropathy Reproductive System Hx Reproductive Disorders: No Sexually Transmitted Disease: No HIV/AIDS: No 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 Genitourinary History of Genitourinary Disor: No Genitourinary Disorders: Bladder Infection Gastrointestinal History of Gastrointestinal Di: Yes Gastrointestinal Disorders: Irritable Bowel Musculoskeletal History of Musculoskeletal Dis: Yes Musculoskeletal Disorders: Arthritis, Fibromyalgia, Chronic Back Pain Endocrine History of Endocrine Disorders: Yes Endocrine Disorders: Diabetes, Non-Insulin dep HEENT History of HEENT Disorders: No Hearing Impairment: Denies Cancer History of Cancer: No Psychosocial History of Psychiatric Problem: No Behavioral Health Disorders: Sleep Difficulties, Anxiety, Suicide Attempts, Bipolar, Depression Suicide Risk Score: 0 Integumentary History of Skin or Integumenta: No Blood Transfusions History of Blood Disorders: No Adverse Reaction to a Blood Tr: No Family Medical History Significant Family History: No Pertinent Family Hx Family Medial History: Cardiovascular disease 19 FATHER 19 MOTHER Diabetes mellitus 19 FATHER 19 MOTHER Hypertension 19 FATHER 19 MOTHER Myocardial infarction 19 MOTHER, Onset:50's - 60 Physical Exam Vital Signs VS - Last 72 Hours, by Label 11/25/16 16:37 Temp 98.1 Pulse 66 Resp 18 B/P (MAP) 146/89 Pulse Ox 98 Capillary Refill : Less Than 3 Seconds General Appearance: WD/WN, no apparent distress HEENT: PERRL/EOMI, normal ENT inspection Neck: non-tender, full range of motion Respiratory: no respiratory distress, no accessory muscle use Cardiovascular: regular rate, rhythm, no murmur Gastrointestinal: normal bowel sounds, soft, tenderness (left lower quadrant) Extremities: normal range of motion, non-tender Neurologic/Psychiatric: alert, normal mood/affect, oriented x 3 Skin: normal color, warm/dry Exam Comments Patient has very poor venous access so lab has drawn blood and we will do sublingual Zofran and Levsin for her crampy pain Progress/Results/Core Measures Results/Orders Lab Results Laboratory Tests Test 11/25/16 16:30 11/25/16 17:00 Range/Units Urine Color YELLOW Urine Clarity SLIGHTLY CLOUDY Urine pH 8 5-9 Urine Specific [place] 1.015 L 1.016-1.022 Urine Protein NEGATIVE NEGATIVE Urine Glucose (UA) NEGATIVE NEGATIVE Urine Ketones 1+ H NEGATIVE Urine Nitrite NEGATIVE NEGATIVE Urine Bilirubin NEGATIVE NEGATIVE Urine Urobilinogen NORMAL NORMAL MG/DL Urine Leukocyte Esterase NEGATIVE NEGATIVE Urine RBC (Auto) NEGATIVE NEGATIVE Urine RBC NONE /HPF Urine WBC NONE /HPF Urine Squamous Epithelial Cells 25-50 H /HPF Urine Crystals PRESENT H /LPF Urine Bacteria NONE /HPF Urine Casts NONE /LPF Urine Mucus NEGATIVE /LPF Urine Culture Indicated NO White Blood Count 10.4 4.3-11.0 10^3/uL Red Blood Count 4.54 4.35-5.85 10^6/uL Hemoglobin 14.4 11.5-16.0 G/DL Hematocrit 42 35-52 % Mean Corpuscular Volume 93 80-99 FL Mean Corpuscular Hemoglobin 32 25-34 PG Mean Corpuscular Hemoglobin Concent 34 32-36 G/DL Red Cell Distribution Width 12.2 10.0-14.5 % Platelet Count 292 130-400 10^3/uL Mean Platelet Volume 10.5 H 7.4-10.4 FL Neutrophils (%) (Auto) 75 42-75 % Lymphocytes (%) (Auto) 19 12-44 % Monocytes (%) (Auto) 5 0-12 % Eosinophils (%) (Auto) 1 0-10 % Basophils (%) (Auto) 0 0-10 % Neutrophils # (Auto) 7.8 1.8-7.8 X 10^3 Lymphocytes # (Auto) 2.0 1.0-4.0 X 10^3 Monocytes # (Auto) 0.5 0.0-1.0 X 10^3 Eosinophils # (Auto) 0.1 0.0-0.3 10^3/uL Basophils # (Auto) 0.0 0.0-0.1 10^3/uL Sodium Level 144 135-145 MMOL/L Potassium Level 3.9 3.6-5.0 MMOL/L Chloride Level 110 H 98-107 MMOL/L Carbon Dioxide Level 26 21-32 MMOL/L Anion Gap 8 5-14 MMOL/L Blood Urea Nitrogen 8 7-18 MG/DL Creatinine 0.61 0.60-1.30 MG/DL Estimat Glomerular Filtration Rate > 60 BUN/Creatinine Ratio 13 Glucose Level 106 H 70-105 MG/DL Calcium Level 9.8 8.5-10.1 MG/DL Total Bilirubin 0.6 0.1-1.0 MG/DL Aspartate Amino Transf (AST/SGOT) 22 5-34 U/L Alanine Aminotransferase (ALT/SGPT) 21 0-55 U/L Alkaline Phosphatase 66 40-136 U/L Total Protein 6.9 6.4-8.2 GM/DL Albumin 4.4 3.2-4.5 GM/DL My Orders Orders - TYLER SIMMS APRN Ua Culture If Indicated (11/25/16 16:41) Cbc With Automated Diff (11/25/16 16:41) Comprehensive Metabolic Panel (11/25/16 16:41) Ondansetron Oral Dissolve Tab (Zofran (11/25/16 17:00) Hyoscyamine Sl Tablet (Levsin Sl Tablet) (11/25/16 17:00) Medications Given in ED Current Medications Medications Dose Ordered Sig/Lana Route Start Time Stop Time Status Last Admin Dose Admin Hyoscyamine Sulfate 0.25 mg ONCE ONCE PO 11/25/16 17:00 11/25/16 17:02 DC 11/25/16 17:22 0.25 MG Ondansetron HCl 8 mg ONCE ONCE PO 11/25/16 17:00 11/25/16 17:02 DC 11/25/16 17:22 8 MG Vital Signs/I&O Vital Sign - Last 12Hours 11/25/16 16:37 Temp 98.1 Pulse 66 Resp 18 B/P (MAP) 146/89 Pulse Ox 98 Blood Pressure Mean: 108 Departure Communication Progress Notes [id number]-- patient reports that she is feeling better at this time after the Levsin and Zofran. We will restart her on Bentyl at home Impression Impression: Primary Impression: abdominal pain Disposition: HOME, SELF-CARE Condition: Stable Departure-Patient Inst. Decision time for Depature: 17:42 Referrals: KIMBERLY MONTGOMERY DO (PCP) Primary Care Physician CATERINA PACE APRN (Family) Primary Care Physician Patient Instructions: No Instuctions Given Add. Discharge Instructions: 1. Return to ER for any concerns 2. See her doctor next week 3. All discharge instructions reviewed with patient and/or family. Voiced understanding. Scripts Dicyclomine HCl (Bentyl) 10 Mg Capsule 10 MG PO [facility], #40 CAP Prov: TYLER SIMMS APRN 11/25/16 TYLER SIMMS APRN Nov 25, 2016 17:09
[2016-11-25 17:10] LABS: BASOPHILS % (AUTO) 0 % (0-10); EOSINOPHILS # (AUTO) 0.1 10^3/uL (0.0-0.3); EOSINOPHILS % (AUTO) 1 % (0-10); LYMPHOCYTES % (AUTO) 19 % (12-44); MEAN CORPUSCULAR HEMOGLOBIN 32 PG (25-34); MEAN CORPUSCULAR HGB CONC 34 G/DL (32-36); MEAN CORPUSCULAR VOLUME 93 FL (80-99); MEAN PLATELET VOLUME 10.5 FL (7.4-10.4); MONOCYTES # (AUTO) 0.5 X 10^3 (0.0-1.0); MONOCYTES % (AUTO) 5 % (0-12); NEUTROPHILS # (AUTO) 7.8 X 10^3 (1.8-7.8); NEUTROPHILS % (AUTO) 75 % (42-75); PLATELET COUNT 292 10^3/uL (130-400); RED BLOOD COUNT 4.54 10^6/uL (4.35-5.85); RED CELL DISTRIBUTION WIDTH 12.2 % (10.0-14.5); WHITE BLOOD COUNT 10.4 10^3/uL (4.3-11.0)
[2016-11-25 17:27] LABS: ALANINE AMINOTRANSFERASE 21 U/L (0-55); ALBUMIN 4.4 GM/DL (3.2-4.5); ANION GAP 8 MMOL/L (5-14); ASPARTATE AMINO TRANSFERASE 22 U/L (5-34); BILIRUBIN,TOTAL 0.6 MG/DL (0.1-1.0); BLOOD UREA NITROGEN 8 MG/DL (7-18); BUN/CREATININE RATIO 13; CALCIUM 9.8 MG/DL (8.5-10.1); CARBON DIOXIDE 26 MMOL/L (21-32); CHLORIDE 110 MMOL/L (98-107); CREATININE SERUM 0.61 MG/DL (0.60-1.30); GFR ESTIMATED > 60; GLUCOSE 106 MG/DL (70-105); POTASSIUM 3.9 MMOL/L (3.6-5.0); SODIUM 144 MMOL/L (135-145); TOTAL PROTEIN 6.9 GM/DL (6.4-8.2)
[2016-11-25] MEDS ORDERED: DICY10CA59 PO (17:48)
[2016-11-25 18:00] VITALS: BP 149/81
== END 2016-11-25 17:59 | disposition home or self-care (01) ==
LOC: EDUNIT# 15:40 → ER 15:42
DX: R10.30 Lower abdominal pain, unspecified (principal); K58.9 Irritable bowel syndrome, unspecified; A69.20 Lyme disease, unspecified; I10 Essential (primary) hypertension; E11.9 Type 2 diabetes mellitus without complications; F17.210 Nicotine dependence, cigarettes, uncomplicated; M79.7 Fibromyalgia; Z79.899 Other long term (current) drug therapy
CPT/HCPCS: 36415; 80053; 81000; 85025; 99283

== ENCOUNTER → 2017-05-04 | Outpatient (CLI) | payer SELFPAY ==
[~2017-05-04] MED LIST changes: +DICY10CA59 PO; +METO100T12 PO; +METO50TA15 PO; +NAPR-1071 PO; -NAPR500T PO
--- NOTE | 2017-05-04 10:13 | Diagnostic Imaging Report ---
PROCEDURE: US Gallbladder. TECHNIQUE: Multiple real-time grayscale images were obtained over the right upper quadrant in various projections. INDICATION: Right upper quadrant abdominal pain. FINDINGS: The liver is normal in size at 16 cm. No discrete liver mass is identified. No definite gallstones or sludge are identified. No wall thickening is detected. There is an area of ringdown artifact present, perhaps owing to adenomyomatosis. No biliary duct dilatation is seen. The pancreas was obscured. Right kidney is unremarkable. There is no ascites. IMPRESSION: No evidence of cholelithiasis or acute cholecystitis. Dictated by: Dictated on workstation # [id number]
== END ==
LOC: RAD 08:47
PROVIDERS: ATTEND Nurse Practitioner Community Health
DX: R10.11 Right upper quadrant pain (principal); R11.0 Nausea
CPT/HCPCS: 76705

== ENCOUNTER 2018-07-20 18:10 | Emergency (ER) | payer SELFPAY ==
[~2018-07-20] VITALS: Ht 157.5 cm; Wt 90.7 kg
[~2018-07-20 18:10] MED LIST changes: -RANI150T15 PO; +RANI150T46 PO; +TRAZ-190 PO; -TRAZ100T92 PO
[2018-07-20] MEDS ORDERED: FAMOTIDINE 20 MG (PEPCID) TABLET PO STA (18:22)
[2018-07-20] MEDS ORDERED: ANTACID SUSP 30 ML UDC (MYLANTA) PO ONE (18:30)
[2018-07-20] MEDS ORDERED: LIDOCAINE 2% VISCOUS 15 ML UDC PO ONE (18:30)
[2018-07-20] MEDS ORDERED: ASPIRIN 81 MG CHEW (CHILDREN'S ASA) PO ONE (18:30)
--- NOTE | 2018-07-20 18:30 | ED Chest Pain ---
General Stated Complaint: CHEST PAIN x3 DAYS Source: patient, family Exam Limitations: no limitations History of Present Illness Date Seen by Provider: Jul 20, 2018 Time Seen by Provider: 18:14 Initial Comments The patient presents to the ER by private conveyance with chief complaint of chest pain that is been going on for 3 days, progressively worsening especially with eating described as burning and points to her mid epigastric region. She has a history of GERD. She says she has no history of coronary artery disease or congestive heart failure. She does have a history of syncope in the past and had a stress test in tilt table test. She follows with Dr. Mcmahan for her syncope. She takes metoprolol and amitriptyline. She has diabetes but does not take any medicines for it. She smokes about a half a pack cigarettes per day. No thyroid disorder or cholesterol problems but she does have high blood pressure. She has been taking her medications regularly and has tried Kaopectate and Pepto-Bismol unsuccessfully to treat the pain and burning in her chest/abdomen. She does not recall having an EGD. She has some mild nausea but has not vomited. She denies any swelling in her feet, orthopnea or shortness of breath. No cough fevers chills or diarrhea. She reports a syncopal episode for several years. She uses CBD oil and it has decreased her dependence on the Prilosec for acid reflux so she stopped using Prilosec several months ago. She had an unremarkable colonoscopy about 5 or 6 years ago by a doctor in [place] who is no longer there. She has never had an EGD. She has a long chronic history of GERD. She denies a history of pancreatitis or alcohol intake. Allergies and Home Medications Allergies Coded Allergies: sucralfate (Verified Allergy, Mild, Vomiting and itching, 11/25/16) Sulfa (Sulfonamide Antibiotics) (Verified Allergy, Unknown, RASH, 11/25/16) potassium (Verified Allergy, Unknown, SWELLING, 11/25/16) Uncoded Allergies: ENVIROMENTAL ALLERGIES (Allergy, Mild, 08/20/08) Home Medications Metoprolol Tartrate 50 Mg Tablet, 50 MG PO BID, (Reported) Patient Home Medication List Home Medication List Reviewed: Yes Review of Systems Review of Systems Constitutional: No chills, No fever EENTM: No Blurred Vision, No Double Vision Respiratory: Denies Cough, Denies Shortness of Air Cardiovascular: See HPI, Chest Pain; Denies Edema, Denies Irregular Heart Rate , Denies Lightheadedness, Denies Palpitations, Denies Syncope Gastrointestinal: See HPI, Abdominal Pain; Denies Constipated, Denies Diarrhea ; Nausea; Denies Vomiting Genitourinary: Denies Burning, Denies Discharge Musculoskeletal: No back pain, No joint pain Skin: No pruritus, No rash Psychiatric/Neurological: Denies Anxiety, Denies Depressed Past Nmqhygo-Sxxsaw-Zsxdbj Hx Patient Social History Alcohol Use: Denies Use Recreational Drug Use: No Smoking Status: Current Everyday Smoker Type Used: Cigarettes (/), Pipe (ppd) Recent Foreign Travel: No Contact w/Someone Who Travel: No Recent Hopitalizations: No Immunizations Up To Date Tetanus Booster (TDap): Less than 5yrs Seasonal Allergies Seasonal Allergies: No Past Medical History Surgeries: Yes Appendectomy, Hysterectomy, Orthopedic, Renal Respiratory: No Chronic Bronchitis Currently Using CPAP: No Currently Using BIPAP: No Cardiac: Yes Hypertension, Syncope Neurological: No Neuropathy Reproductive Disorders: No 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 Sexually Transmitted Disease: No HIV/AIDS: No Genitourinary: No Bladder Infection Gastrointestinal: Yes Irritable Bowel Musculoskeletal: Yes Arthritis, Fibromyalgia, Chronic Back Pain Endocrine: Yes Diabetes, Non-Insulin dep HEENT: No Hearing Impairment: Denies Cancer: No Psychosocial: No Sleep Difficulties, Anxiety, Suicide Attempts, Bipolar, Depression Integumentary: No Blood Disorders: No Adverse Reaction/Blood Tranf: No Family Medical History Cardiovascular disease 19 FATHER 19 MOTHER Diabetes mellitus 19 FATHER 19 MOTHER Hypertension 19 FATHER 19 MOTHER Myocardial infarction 19 MOTHER, Onset:50's - 60 No Pertinent Family Hx Physical Exam Vital Signs Vital Signs - First Documented 07/20/18 18:14 Temp 96.8 Pulse 82 Resp 18 B/P (MAP) 150/100 (117) Pulse Ox 99 O2 Delivery Room Air Capillary Refill : Height, Weight, BMI Height: 5'2.00" Weight: 182lbs. 0.0oz. 82.159488lt; 33.3 BMI Method:Stated General Appearance: WD/WN, Mild Distress HEENT: PERRL/EOMI, TMs Normal, Pharynx Normal, Moist Mucous Membranes Neck: Full Range of Motion, Normal Inspection Respiratory: Lungs Clear, Normal Breath Sounds, No Accessory Muscle Use, No Respiratory Distress, Other (Chest wall nontender but her midepigastric region where she points to the pain is tender to palpation) Cardiovascular: Regular Rate, Rhythm, No Edema, No JVD, Normal Peripheral Pulses Gastrointestinal: Normal Bowel Sounds, No Organomegaly, Soft; No Guarding, No Rebound; Tenderness, Other (Negative for Fernandez sign, Coward's point tenderness or psoas or other mesenteric signs.) Progress/Results/Core Measures Results/Orders Lab Results Laboratory Tests Test 07/20/18 18:25 07/20/18 19:00 Range/Units White Blood Count 19.2 H 4.3-11.0 10^3/uL Red Blood Count 4.80 4.35-5.85 10^6/uL Hemoglobin 14.8 11.5-16.0 G/DL Hematocrit 43 35-52 % Mean Corpuscular Volume 89 80-99 FL Mean Corpuscular Hemoglobin 31 25-34 PG Mean Corpuscular Hemoglobin Concent 35 32-36 G/DL Red Cell Distribution Width 12.6 10.0-14.5 % Platelet Count 370 130-400 10^3/uL Mean Platelet Volume 10.3 7.4-10.4 FL Neutrophils (%) (Auto) 63 42-75 % Lymphocytes (%) (Auto) 29 12-44 % Monocytes (%) (Auto) 8 0-12 % Eosinophils (%) (Auto) 0 0-10 % Basophils (%) (Auto) 0 0-10 % Neutrophils # (Auto) 12.2 H 1.8-7.8 X 10^3 Lymphocytes # (Auto) 5.5 H 1.0-4.0 X 10^3 Monocytes # (Auto) 1.5 H 0.0-1.0 X 10^3 Eosinophils # (Auto) 0.1 0.0-0.3 10^3/uL Basophils # (Auto) 0.0 0.0-0.1 10^3/uL Neutrophils % (Manual) 65 % Lymphocytes % (Manual) 31 % Monocytes % (Manual) 4 % Blood Morphology Comment NORMAL Prothrombin Time 13.6 12.2-14.7 SEC INR Comment 1.0 0.8-1.4 Activated Partial Thromboplast Time 22 L 24-35 SEC Sodium Level 141 135-145 MMOL/L Potassium Level 3.7 3.6-5.0 MMOL/L Chloride Level 105 98-107 MMOL/L Carbon Dioxide Level 24 21-32 MMOL/L Anion Gap 12 5-14 MMOL/L Blood Urea Nitrogen 9 7-18 MG/DL Creatinine 0.71 0.60-1.30 MG/DL Estimat Glomerular Filtration Rate > 60 BUN/Creatinine Ratio 13 Glucose Level 134 H 70-105 MG/DL Calcium Level 10.5 H 8.5-10.1 MG/DL Corrected Calcium 8.5-10.1 MG/DL Magnesium Level 2.2 1.8-2.4 MG/DL Total Bilirubin 0.3 0.1-1.0 MG/DL Aspartate Amino Transf (AST/SGOT) 15 5-34 U/L Alanine Aminotransferase (ALT/SGPT) 29 0-55 U/L Alkaline Phosphatase 91 40-136 U/L Myoglobin 20.2 10.0-92.0 NG/ML Troponin I < 0.028 <0.028 NG/ML Total Protein 7.3 6.4-8.2 GM/DL Albumin 4.7 H 3.2-4.5 GM/DL Lipase 18 8-78 U/L Urine Color YELLOW Urine Clarity SLIGHTLY CLOUDY Urine pH 6.5 5-9 Urine Specific [place] 1.020 1.016-1.022 Urine Protein 1+ H NEGATIVE Urine Glucose (UA) 2+ H NEGATIVE Urine Ketones NEGATIVE NEGATIVE Urine Nitrite NEGATIVE NEGATIVE Urine Bilirubin NEGATIVE NEGATIVE Urine Urobilinogen NORMAL NORMAL MG/DL Urine Leukocyte Esterase 1+ H NEGATIVE Urine RBC (Auto) 2+ H NEGATIVE Urine RBC 0-2 /HPF Urine WBC 0-2 /HPF Urine Squamous Epithelial Cells 2-5 /HPF Urine Crystals NONE /LPF Urine Bacteria FEW H /HPF Urine Casts NONE /LPF Urine Mucus SMALL H /LPF Urine Culture Indicated NO My Orders Orders - ALDA QUIGLEY Continuous Ekg Monitoring (07/20/18 18:15) Ekg Tracing (07/20/18 18:15) Cbc With Automated Diff (07/20/18 18:) Magnesium (07/20/18 18:) Chest 1 View, Ap/Pa Only (07/20/18 18:) Cardiac Profile 1 (07/20/18 18:) Comprehensive Metabolic Panel (07/20/18 18:) Myoglobin Serum (07/20/18 18:22) Protime With Inr (07/20/18 18:22) Partial Thromboplastin Time (07/20/18 18:22) O2 (07/20/18 18:22) Lipid Panel (07/21/18 06:00) Ed Iv/Invasive Line Start (07/20/18 18:22) Lipase (07/20/18 18:22) Aspirin Chewable Tablet (Baby Aspirin Ch (07/20/18 18:30) Lidocaine 2% Viscous 15 Ml (Xylocaine Vi (07/20/18 18:30) Famotidine Tablet (Pepcid Tablet) (07/20/18 18:22) Antacid Suspension (Mylanta Suspension (07/20/18 18:30) Ondansetron Injection (Zofran Injectio (07/20/18 18:45) Ua Culture If Indicated (07/20/18 18:33) Manual Differential (07/20/18 18:25) Medications Given in ED Current Medications Medications Dose Ordered Sig/Lana Route Start Time Stop Time Status Last Admin Dose Admin Al Hydrox/Mg Hydrox/Simethicone 30 ml ONCE ONCE PO 07/20/18 18:30 07/20/18 18:31 DC 07/20/18 18:46 30 ML Aspirin 324 mg ONCE ONCE PO 07/20/18 18:30 07/20/18 18:31 DC 07/20/18 18:44 324 MG Lidocaine HCl 15 ml ONCE ONCE PO 07/20/18 18:30 07/20/18 18:31 DC 07/20/18 18:45 15 ML Ondansetron HCl 4 mg ONCE ONCE IVP 07/20/18 18:45 07/20/18 18:46 DC 07/20/18 18:43 4 MG Vital Signs/I&O 07/20/18 07/20/18 18:14 19:09 Temp 96.8 Pulse 82 Resp 18 B/P (MAP) 150/100 (117) Pulse Ox 99 97 O2 Delivery Room Air Room Air Progress Progress Note #1: Time: 18:29 Progress Note We'll give her some aspirin and then a GI cocktail. I do not see any evidence that this is related to her heart especially given her young age. Initial EKG is unremarkable. We'll still check a troponin in addition to lipase, CBC CMP and a urinalysis. Zofran for her nausea. Stress echocardiogram [address] Mcmahan: Negative stress test with EF of 60%. Good exercise tolerance total of 7 METS. ED ACS score negative four points. Low risk by the EDACS Score. If the patient also has: (1) EKG without new ischemic changes and (2) negative initial and 2-hour troponins, then this patient is safe for discharge to early outpatient follow-up investigation (or proceed to earlier inpatient testing). If EKG with ischemic changes or positive troponin, they are not low risk and require normal risk stratification. Progress Note #2: Time: 19:46 Progress Note The patient's pain had a significant decrease after the GI cocktail but she still having about 5 or 6 out of 10 epigastric pain for 3 days. With essentially negative. We offered to do a CT but after discussing with her that she just a few days ago had a steroid shot in her right knee by her primary care physician for chronic knee arthritis we discussed the risks, benefits and alternatives. The somewhat she's having gastritis her lipase is negative and her rest of her abdomen is non-acute. We will give her some tramadol to help with the pain and encourage her to start on omeprazole and Carafate. We'll send her home some nausea medicine. We'll set her up with general surgeon for outpatient management. She is okay with this plan. Initial ECG Impression Date: Jul 20, 2018 Initial ECG Impression Time: 18:23 Initial ECG Rate: 71 Initial ECG Rhythm: Normal Sinus Initial ECG Intervals: Normal Initial ECG Impression: Normal Comment No Significant ST elevation or depression. Diagnostic Imaging Diagonstic Imaging: Xray Plain Films/CT/US/NM/MRI: chest (1v) Comments No acute infiltrates or other cardiopulmonary processes noted. Diaphragms are well visualized. Reviewed: Reviewed by Me Departure Impression Primary Impression: Gastritis Qualified Codes: K29.00 - Acute gastritis without bleeding Disposition: 01 HOME, SELF-CARE Condition: Improved Departure-Patient Inst. Decision time for Depature: 19:48 Referrals: [facility]/KAREN (PCP) Primary Care Physician ALEXIA SMITH (Family) Primary Care Physician ELIJAH RAWLS DO Patient Instructions: Gastritis (DC) Add. Discharge Instructions: Start taking the omeprazole 40 mg daily for the next 4 weeks until taken off by your physician. Start taking the Carafate 30 minutes before meals and at bedtime for a total of 4 tablets a day for the next 2 weeks. Continue to use Tums, Rolaids, Maalox etc. as needed for breakthrough burning pain. You can also use Tylenol 1000 g every 8 hours in addition to tramadol 1 tablet every 6 hours as needed. 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 Zofran to be used for nausea or vomiting every 6 hours as needed. Follow-up with Dr. Rawls, General Surgery to discuss outpatient management. Return to the ER nearest you if you begin to experience intractable pain, fever , intractable nausea vomiting despite your medicines. Scripts Tramadol HCl (Tramadol HCl) 50 Mg Tablet 50 MG PO Q6H PRN for PAIN, #20 TAB 0 Refills Prov: ALDA QUIGLEY 07/20/18 Omeprazole (Omeprazole) 40 Mg Capsule.dr 40 MG PO DAILY for 30 Days, #30 CAP 0 Refills Prov: ALDA QUIGLEY 07/20/18 Sucralfate (Carafate) 1 Gm Tablet 1 GM PO QIDACHS for 14 Days, #56 TAB 0 Refills Prov: ALDA QUIGLEY 07/20/18 Ondansetron (Ondansetron Odt) 4 Mg Tab.rapdis 4 MG PO Q6H PRN for NAUSEA/VOMITING, #10 TAB 0 Refills Prov: ALDA QUIGLEY 07/20/18 Copy Copies To 1: ELIJAH RAWLS TITUS J Jul 20, 2018 18:30
[2018-07-20 18:42] LABS: BASOPHILS % (AUTO) 0 % (0-10); EOSINOPHILS # (AUTO) 0.1 10^3/uL (0.0-0.3); EOSINOPHILS % (AUTO) 0 % (0-10); HEMATOCRIT 43 % (35-52); HEMOGLOBIN 14.8 G/DL (11.5-16.0); LYMPHOCYTES # (AUTO) 5.5 X 10^3 (1.0-4.0); LYMPHOCYTES % (AUTO) 29 % (12-44); MEAN CORPUSCULAR HEMOGLOBIN 31 PG (25-34); MEAN CORPUSCULAR HGB CONC 35 G/DL (32-36); MEAN CORPUSCULAR VOLUME 89 FL (80-99); MEAN PLATELET VOLUME 10.3 FL (7.4-10.4); MONOCYTES # (AUTO) 1.5 X 10^3 (0.0-1.0); MONOCYTES % (AUTO) 8 % (0-12); NEUTROPHILS # (AUTO) 12.2 X 10^3 (1.8-7.8); NEUTROPHILS % (AUTO) 63 % (42-75); PLATELET COUNT 370 10^3/uL (130-400); RED CELL DISTRIBUTION WIDTH 12.6 % (10.0-14.5); WHITE BLOOD COUNT 19.2 10^3/uL (4.3-11.0)
[2018-07-20] MEDS ORDERED: ONDANSETRON 4 MG/2 ML (SDV) Z0FRAN IVP ONE (18:45)
[2018-07-20 18:53] LABS: PROTHROMBIN TIME PATIENT 13.6 SEC (12.2-14.7)
[2018-07-20 18:59] LABS: LYMPHOCYTES % (MANUAL) 31 %; MONOCYTES % (MANUAL) 4 %; NEUTROPHILS % (MANUAL) 65 %; RBC MORPH NORMAL
[2018-07-20 19:01] LABS: ALANINE AMINOTRANSFERASE 29 U/L (0-55); ALBUMIN 4.7 GM/DL (3.2-4.5); ALKALINE PHOSPHATASE 91 U/L (40-136); BILIRUBIN,TOTAL 0.3 MG/DL (0.1-1.0); BUN/CREATININE RATIO 13; CALCIUM 10.5 MG/DL (8.5-10.1); CARBON DIOXIDE 24 MMOL/L (21-32); CHLORIDE 105 MMOL/L (98-107); CREATININE SERUM 0.71 MG/DL (0.60-1.30); GFR ESTIMATED > 60; GLUCOSE 134 MG/DL (70-105); LIPASE 18 U/L (8-78); MAGNESIUM 2.2 MG/DL (1.8-2.4); POTASSIUM 3.7 MMOL/L (3.6-5.0); SODIUM 141 MMOL/L (135-145); TOTAL PROTEIN 7.3 GM/DL (6.4-8.2)
[2018-07-20 19:10] LABS: BILIRUBIN,URINE NEGATIVE (NEGATIVE); CLARITY,URINE SLIGHTLY CLOUDY; COLOR,URINE YELLOW; GLUCOSE, URINE (UA) 2+ (NEGATIVE); KETONES,URINE NEGATIVE (NEGATIVE); LEUKOCYTE ESTERASE ,URINE 1+ (NEGATIVE); NITRITE,URINE NEGATIVE (NEGATIVE); PH,URINE 6.5 (5-9); PROTEIN,URINE 1+ (NEGATIVE); UROBILINOGEN,URINE NORMAL (NORMAL)
[2018-07-20 19:21] LABS: BACTERIA,URINE FEW /HPF; RBC,URINE 0-2 /HPF; WBC,URINE 0-2 /HPF
[2018-07-20] MEDS ORDERED: OMEP40CA36 PO (19:54)
[2018-07-20] MEDS ORDERED: ONDA4TAB11 PO (19:54)
[2018-07-20] MEDS ORDERED: SUCR1TAB36 PO (19:54)
[2018-07-20] MEDS ORDERED: TRAM50TA2 PO (19:54)
[2018-07-20 20:05] VITALS: BP 158/106
--- NOTE | 2018-07-20 20:52 | Diagnostic Imaging Report ---
Examination: AP upright portable chest Indication: Chest pain. Comparison: Multiple priors, most recent performed on 09/30/2016. Findings: Lungs are clear and the pulmonary vasculature is normal. No pneumothorax or large pleural effusion. The cardiomediastinal silhouette is unchanged. No acute osseous abnormality. Impression: No acute chest disease. No significant change from prior. Dictated by: Dictated on workstation # [id number]
== END 2018-07-20 20:07 | disposition home or self-care (01) ==
LOC: EDUNIT# 18:10 → ER 18:12
DX: K29.70 Gastritis, unspecified, without bleeding (principal); K21.9 Gastro-esophageal reflux disease without esophagitis; K58.9 Irritable bowel syndrome, unspecified; M79.7 Fibromyalgia; E11.9 Type 2 diabetes mellitus without complications; F41.9 Anxiety disorder, unspecified; F31.9 Bipolar disorder, unspecified; I10 Essential (primary) hypertension; F17.210 Nicotine dependence, cigarettes, uncomplicated; Z90.49 Acquired absence of other specified parts of digestive tract; Z91.5 Personal history of self-harm; Z82.49 Family history of ischemic heart disease and other diseases of the circulatory system; Z87.448 Personal history of other diseases of urinary system; Z90.710 Acquired absence of both cervix and uterus; Z98.890 Other specified postprocedural states; Z87.09 Personal history of other diseases of the respiratory system; Z88.2 Allergy status to sulfonamides; Z88.8 Allergy status to other drugs, medicaments and biological substances
CPT/HCPCS: 36415; 71045; 80053; 81000; 83690; 83735; 83874; 84484; 85007; 85027; 85610; 85730